=== PATIENT | female | born 1960 | race Caucasian/White ===

== ENCOUNTER 2017-04-27 18:40 | Inpatient (IN) | payer MEDICAID ==
[~2017-04-27] VITALS: Ht 167.6 cm; Wt 65.5 kg
[~2017-04-27 18:40] MED LIST: OMEP20 PO; PALI234D IM; TRAZ-144 PO
[2017-04-27 20:42] VITALS: BP 150/95
[2017-04-27] MEDS ORDERED: HALOPERIDOL 5 MG TABLET PO PRN (20:45)
[2017-04-27] MEDS ORDERED: LORazepam 2 MG TABLET PO PRN (20:45)
[2017-04-27] MEDS ORDERED: PNEUMOCOCCAL VACCINE POLYVALENT 0.5 ML VIAL [PPSV23] IM ONE (21:30)
[2017-04-27 22:10] VITALS: BP 135/90
[2017-04-27] MEDS: ZOLPIDEM TARTRATE 10 MG TABLET PO PRN (22:18)
[2017-04-28 07:17] VITALS: BP 149/90
[2017-04-28 08:12] LABS: BASOPHILS % (AUTO) 0.4 % (0.0-2.0); EOSINOPHILS % (AUTO) 5.2 % (1.0-6.0); HEMATOCRIT 36.1 % (36-46); HEMOGLOBIN 12.5 g/dL (12.0-16.0); LYMPHOCYTES # (AUTO) 1.1 K/uL (1.0-4.8); LYMPHOCYTES % (AUTO) 16.1 % (22.0-44.0); MEAN CORPUSCULAR HEMOGLOBIN 31.7 pg (26.0-34.0); MEAN CORPUSCULAR HGB CONC 34.6 G/dL (31.0-37.0); MEAN CORPUSCULAR VOLUME 92 fL (80-100); MONOCYTES # (AUTO) 0.7 K/uL (0.1-1.0); MONOCYTES % (AUTO) 9.6 % (2.0-9.0); NEUTROPHILS # (AUTO) 4.8 K/uL (1.8-7.7); NEUTROPHILS % (AUTO) 68.7 % (40.0-70.0); PLATELET COUNT (AUTO) 324 K/uL (150-450); RED BLOOD CELL COUNT(AUTO) 3.94 MIL/uL (4.00-5.20); RED CELL DISTRIBUTION WIDTH 14.5 % (11.5-14.5); WHITE BLOOD COUNT (AUTO) 7.1 K/uL (4.5-11.0)
[2017-04-28 08:34] VITALS: BP 139/96
[2017-04-28 08:34] LABS: ALANINE AMINOTRANSFERASE 21 U/L (12-78); ALBUMIN 3.5 g/dL (3.4-5.0); ANION GAP 7 mmol/L (8-16); ASPARTATE AMINOTRANSFERASE 13 U/L (15-37); BILIRUBIN,TOTAL 0.2 mg/dL (0.1-1.0); CALCIUM, TOTAL 8.7 mg/dL (8.8-10.5); CARBON DIOXIDE 27 mmol/L (22-29); CHLORIDE 105 mmol/L (98-107); CREATININE 0.74 mg/dL (0.60-1.30); GLOMERULAR FILTR. RATE CALC > 60 mL/min (>60); POTASSIUM 4.4 mmol/L (3.5-5.1); SODIUM SERUM 139 mmol/L (136-145); THYROID STIMULATING HORMONE 1.84 uIU/mL (0.36-3.74); TOTAL PROTEIN, SERUM 6.3 g/dL (6.4-8.2); UREA NITROGEN, BLOOD 20 mg/dL (7-18)
[2017-04-28 08:52] LABS: APPEARANCE,URINE CLEAR (CLEAR); GLUCOSE, URINE (UA) NEGATIVE (NEGATIVE); KETONES,URINE NEGATIVE (NEGATIVE); LEUKOCYTE ESTERASE ,URINE TRACE (NEGATIVE); OCCULT BLOOD,URINE NEGATIVE (NEGATIVE); PROTEIN,URINE NEGATIVE (NEGATIVE)
[2017-04-28 08:53] LABS: ADD UA MICROSCOPIC YES
[2017-04-28 09:03] LABS: RBC,URINE 0-2 /HPF (0-2); SQUAMOUS EPITHELIAL CELL,UR Rare /LPF (None Seen); WBC,URINE 0-2 /HPF (0-5)
[2017-04-28] MEDS ORDERED: ACETAMINOPHEN 325 MG TABLET PO PRN (09:15)
[2017-04-28] MEDS ORDERED: IBUPROFEN 600 MG TABLET PO PRN (09:15)
[2017-04-28] MEDS: OMEPRAZOLE 20 MG CAPSULE PO SCH (10:39)
[2017-04-28] MEDS: NICOTINE 21 MG/24 HOUR PATCH TD SCH (10:40)
[2017-04-28] MEDS: CloZAPine 100 MG TABLET PO SCH ×2 (16:12→20:08)
[2017-04-28] MEDS: QUEtiapine FUMARATE 300 MG TABLET PO SCH ×2 (16:12→20:08)
[2017-04-28 16:14] VITALS: BP 133/68
[2017-04-28] MEDS ORDERED: CloZAPine 100 MG TABLET PO SCH ×2 (17:00→21:00)
[2017-04-28] MEDS ORDERED: QUEtiapine FUMARATE 300 MG TABLET PO SCH ×2 (17:00→21:00)
[2017-04-28] MEDS: ZOLPIDEM TARTRATE 10 MG TABLET PO PRN (20:08)
[2017-04-29 02:56] VITALS: BP 127/63
[2017-04-29 08:18] VITALS: BP 142/99
[2017-04-29] MEDS: OMEPRAZOLE 20 MG CAPSULE PO SCH (08:23)
[2017-04-29] MEDS: AmLODIPine BESYLATE 5 MG TABLET PO SCH (08:23)
[2017-04-29] MEDS: NICOTINE 21 MG/24 HOUR PATCH TD SCH (08:23)
[2017-04-29] MEDS: QUEtiapine FUMARATE 300 MG TABLET PO SCH ×2 (16:02→20:14)
[2017-04-29 16:03] VITALS: BP 125/73
[2017-04-29] MEDS: CloZAPine 100 MG TABLET PO SCH ×2 (16:03→20:14)
[2017-04-29] MEDS: ZOLPIDEM TARTRATE 10 MG TABLET PO PRN (20:19)
[2017-04-30 07:05] VITALS: BP 131/78
[2017-04-30] MEDS: OMEPRAZOLE 20 MG CAPSULE PO SCH (08:03)
[2017-04-30] MEDS: AmLODIPine BESYLATE 5 MG TABLET PO SCH (08:03)
[2017-04-30] MEDS: NICOTINE 21 MG/24 HOUR PATCH TD SCH (08:03)
[2017-04-30 08:22] VITALS: BP 115/75
[2017-04-30 16:00] VITALS: BP 129/81
[2017-04-30] MEDS: CloZAPine 100 MG TABLET PO SCH ×2 (16:05→20:04)
[2017-04-30] MEDS: QUEtiapine FUMARATE 300 MG TABLET PO SCH ×2 (16:05→20:03)
[2017-04-30] MEDS: ZOLPIDEM TARTRATE 10 MG TABLET PO PRN (20:04)
[2017-05-01] MEDS: AmLODIPine BESYLATE 5 MG TABLET PO SCH (08:50)
[2017-05-01] MEDS: OMEPRAZOLE 20 MG CAPSULE PO SCH (08:50)
[2017-05-01] MEDS: NICOTINE 21 MG/24 HOUR PATCH TD SCH (08:50)
[2017-05-01 16:08] VITALS: BP 119/77
[2017-05-01] MEDS: CloZAPine 100 MG TABLET PO SCH ×2 (16:17→20:29)
[2017-05-01] MEDS: QUEtiapine FUMARATE 300 MG TABLET PO SCH ×2 (16:17→20:29)
[2017-05-01] MEDS: DOCUSATE SODIUM 250 MG CAPSULE PO SCH (17:18)
[2017-05-02 06:44] VITALS: BP 122/86
[2017-05-02] MEDS ORDERED: AMLO-511 PO (08:25)
[2017-05-02] MEDS ORDERED: DOCU250C91 PO (08:25)
[2017-05-02] MEDS: NICOTINE 21 MG/24 HOUR PATCH TD SCH (08:32)
[2017-05-02] MEDS: DOCUSATE SODIUM 250 MG CAPSULE PO SCH (08:32)
[2017-05-02] MEDS: OMEPRAZOLE 20 MG CAPSULE PO SCH (08:32)
[2017-05-02] MEDS: AmLODIPine BESYLATE 5 MG TABLET PO SCH (08:32)
[2017-05-02] MEDS ORDERED: QUET300T2 PO ×2 (08:34→08:36)
[2017-05-02] MEDS ORDERED: CLOZ100 PO ×2 (08:35→08:37)
[2017-05-02 09:00] VITALS: BP 122/86
[2017-05-21] MEDS ORDERED: PALIPERIDONE PALMITATE 234 MG/1.5 ML SYRINGE IM SCH ×2 (09:00)
== END 2017-05-02 13:10 | disposition home or self-care (01) | DRG 750 ==
LOC: EDSTATUS 20:17 → B3A 20:40
DX: F20.0 Paranoid schizophrenia (principal); I10 Essential (primary) hypertension; K21.9 Gastro-esophageal reflux disease without esophagitis; Z82.5 Family history of asthma and other chronic lower respiratory diseases; Z83.3 Family history of diabetes mellitus; Z91.5 Personal history of self-harm
CPT/HCPCS: 80307; 84436; 84439; 84443; 87081

== ENCOUNTER 2017-06-12 09:26 | Emergency (ER) | payer MEDICAID ==
[~2017-06-12] VITALS: Ht 167.6 cm; Wt 65.9 kg
[~2017-06-12 09:26] MED LIST changes: +AMLO-511 PO; +CLOZ100 PO; +DOCU250C91 PO; -PALI234D IM; +QUET300T2 PO; -TRAZ-144 PO
[2017-06-12 09:38] VITALS: BP 99/72
== END 2017-06-12 10:53 | disposition home or self-care (01) ==
LOC: EMS 09:27
DX: M72.2 Plantar fascial fibromatosis (principal); K21.9 Gastro-esophageal reflux disease without esophagitis; F17.210 Nicotine dependence, cigarettes, uncomplicated
CPT/HCPCS: 99282

== ENCOUNTER 2017-11-18 12:43 | Emergency (ER) | payer MEDICAID | END 2017-11-18 13:00 | disposition left against medical advice (07) | LOC: EMS 12:46 | DX: Z53.21 Procedure and treatment not carried out due to patient leaving prior to being seen by health care provider (principal) ==

== ENCOUNTER 2019-03-28 22:00 | Inpatient (IN) | payer MEDICAID ==
[~2019-03-28] VITALS: Ht 168.9 cm; Wt 65.2 kg
[~2019-03-28 22:00] MED LIST changes: -AMLO-511 PO; +AMLO5TAB9 PO; +DOCU-342 PO; -DOCU250C91 PO
[2019-03-28] MEDS ORDERED: HALOPERIDOL 5 MG TABLET PO PRN (22:30)
[2019-03-28] MEDS ORDERED: LORazepam 2 MG TABLET PO PRN (22:30)
[2019-03-28] MEDS ORDERED: ZOLPIDEM TARTRATE 10 MG TABLET PO PRN (22:30)
[2019-03-28 22:47] VITALS: BP 130/94
[2019-03-28] MEDS ORDERED: INFLUENZA VIRUS VACCINE QVS 2019-20 (3YR+)/PF 60 MCG/0.5 ML SYRINGE IM ONE (23:15)
[2019-03-29 00:12] VITALS: BP 125/69
[2019-03-29] MEDS ORDERED: ACETAMINOPHEN 650 MG/20.3 ML SOLUTION UDCUP PO PRN (07:30)
[2019-03-29] MEDS ORDERED: IBUPROFEN 600 MG TABLET PO PRN (07:30)
[2019-03-29 08:06] LABS: BASOPHILS % (AUTO) 1.1 % (0.0-2.0); LYMPHOCYTES # (AUTO) 1.1 K/uL (1.0-4.8); LYMPHOCYTES % (AUTO) 20.8 % (22.0-44.0); MEAN CORPUSCULAR HEMOGLOBIN 31.5 pg (26.0-34.0); MEAN CORPUSCULAR HGB CONC 34.3 G/dL (31.0-37.0); MEAN CORPUSCULAR VOLUME 92 fL (80-100); MONOCYTES # (AUTO) 0.6 K/uL (0.1-1.0); MONOCYTES % (AUTO) 12.4 % (2.0-9.0); NEUTROPHILS # (AUTO) 3.1 K/uL (1.8-7.7); NEUTROPHILS % (AUTO) 61.7 % (40.0-70.0); PLATELET COUNT (AUTO) 392 K/uL (150-450); RED BLOOD CELL COUNT(AUTO) 4.14 MIL/uL (4.00-5.20); RED CELL DISTRIBUTION WIDTH 13.3 % (11.5-14.5)
[2019-03-29 08:12] VITALS: BP 111/73
[2019-03-29] MEDS ORDERED: ACETAMINOPHEN 325 MG TABLET PO PRN (08:15)
[2019-03-29 08:25] LABS: HEMOGLOBIN A1C 5.7 % (4.5-6.2)
[2019-03-29 08:34] LABS: ALANINE AMINOTRANSFERASE 28 U/L (12-78); ALBUMIN 4.2 g/dL (3.4-5.0); ALKALINE PHOSPHATASE 147 U/L (46-116); ANION GAP 7 mmol/L (8-16); ASPARTATE AMINOTRANSFERASE 20 U/L (15-37); BILIRUBIN,TOTAL 0.3 mg/dL (0.1-1.0); CALCIUM, TOTAL 9.5 mg/dL (8.8-10.5); CARBON DIOXIDE 28 mmol/L (22-29); CHLORIDE 107 mmol/L (98-107); CHOL/HDL RATIO 3.3 (3.9-5.7); CHOLESTEROL 171 mg/dL (131-200); FREE T4 (FREE THYROXINE) 0.81 ng/dL (0.76-1.46); GLOMERULAR FILTR. RATE CALC > 60 mL/min (>60); GLUCOSE,RANDOM 97 mg/dL (70-110); HDL CHOLESTEROL 52 mg/dL (40-60); LDL CHOL (CALC.) 98 mg/dL (0-130); POTASSIUM 4.5 mmol/L (3.5-5.1); SODIUM SERUM 142 mmol/L (136-145); THYROID STIMULATING HORMONE 2.94 uIU/mL (0.36-3.74); TOTAL PROTEIN, SERUM 7.2 g/dL (6.4-8.2); TRIGLYCERIDES 103 mg/dL (15-150); UREA NITROGEN, BLOOD 13 mg/dL (7-18)
[2019-03-29] MEDS: NICOTINE 14 MG/24 HOUR PATCH TD SCH (09:16)
[2019-03-29 16:09] VITALS: BP 111/79
[2019-03-29] MEDS: QUEtiapine FUMARATE 300 MG TABLET PO SCH (20:24)
[2019-03-29] MEDS: CloZAPine 100 MG TABLET PO SCH (21:00)
[2019-03-30 01:16] VITALS: BP 104/62
[2019-03-30 08:12] VITALS: BP 113/77
[2019-03-30] MEDS: NICOTINE 14 MG/24 HOUR PATCH TD SCH (08:23)
[2019-03-30] MEDS: OMEPRAZOLE 20 MG CAPSULE PO SCH (08:23)
[2019-03-30] MEDS: DOCUSATE SODIUM 250 MG CAPSULE PO SCH (08:23)
[2019-03-30 16:14] VITALS: BP 128/78
[2019-03-30] MEDS: CloZAPine 100 MG TABLET PO SCH (20:40)
[2019-03-30] MEDS: QUEtiapine FUMARATE 300 MG TABLET PO SCH (20:40)
[2019-03-31 05:54] VITALS: BP 134/79
[2019-03-31] MEDS: NICOTINE 14 MG/24 HOUR PATCH TD SCH (08:18)
[2019-03-31] MEDS: OMEPRAZOLE 20 MG CAPSULE PO SCH (08:18)
[2019-03-31] MEDS: DOCUSATE SODIUM 250 MG CAPSULE PO SCH (08:18)
[2019-03-31 08:51] VITALS: BP 122/93
[2019-03-31] MEDS ORDERED: CLOZ100 PO (11:32)
== END 2019-03-31 13:10 | disposition home or self-care (01) | DRG 750 ==
LOC: B2S 22:25
PROVIDERS: ADMIT Psychiatry & Neurology Psychiatry; ATTEND Psychiatry & Neurology Psychiatry
DX: F20.0 Paranoid schizophrenia (principal); R45.851 Suicidal ideations; Z59.0 Homelessness; I10 Essential (primary) hypertension; J45.909 Unspecified asthma, uncomplicated; K21.9 Gastro-esophageal reflux disease without esophagitis; K59.00 Constipation, unspecified; F12.90 Cannabis use, unspecified, uncomplicated; M17.11 Unilateral primary osteoarthritis, right knee; Z82.5 Family history of asthma and other chronic lower respiratory diseases
CPT/HCPCS: 83036; 84439; 84443; 90686

== ENCOUNTER 2019-05-27 18:06 | Emergency (ER) | payer MEDICAID ==
[~2019-05-27] VITALS: Ht 167.6 cm; Wt 72.7 kg
[~2019-05-27 18:06] MED LIST changes: -AMLO5TAB9 PO
[2019-05-27 18:14] VITALS: BP 119/90
[2019-05-27 19:46] LABS: BASOPHILS % (AUTO) 0.7 % (0.0-2.0); EOSINOPHILS % (AUTO) 1.5 % (1.0-6.0); HEMATOCRIT 35.3 % (36-46); HEMOGLOBIN 12.2 g/dL (12.0-16.0); LYMPHOCYTES % (AUTO) 15.3 % (22.0-44.0); MEAN CORPUSCULAR HEMOGLOBIN 31.5 pg (26.0-34.0); MEAN CORPUSCULAR HGB CONC 34.4 G/dL (31.0-37.0); MEAN CORPUSCULAR VOLUME 91 fL (80-100); MONOCYTES # (AUTO) 0.8 K/uL (0.1-1.0); MONOCYTES % (AUTO) 12.1 % (2.0-9.0); NEUTROPHILS # (AUTO) 4.4 K/uL (1.8-7.7); NEUTROPHILS % (AUTO) 70.4 % (40.0-70.0); PLATELET COUNT (AUTO) 379 K/uL (150-450); RED BLOOD CELL COUNT(AUTO) 3.87 MIL/uL (4.00-5.20); RED CELL DISTRIBUTION WIDTH 13.3 % (11.5-14.5)
[2019-05-27 19:54] LABS: CALCIUM, TOTAL 9.4 mg/dL (8.8-10.5); CREATININE 1.2 mg/dL (0.60-1.30); POTASSIUM 3.5 mmol/L (3.5-5.1)
[2019-05-27 20:02] LABS: ALBUMIN 4.5 g/dL (3.4-5.0); BILIRUBIN,TOTAL 0.3 mg/dL (0.1-1.0); TOTAL PROTEIN, SERUM 7.8 g/dL (6.4-8.2)
== END 2019-05-27 20:00 | disposition home or self-care (01) ==
LOC: EMS 18:08
DX: B34.9 Viral infection, unspecified (principal); R11.2 Nausea with vomiting, unspecified; G47.00 Insomnia, unspecified; K21.9 Gastro-esophageal reflux disease without esophagitis; F41.9 Anxiety disorder, unspecified; F32.9 Major depressive disorder, single episode, unspecified; F20.9 Schizophrenia, unspecified; F17.210 Nicotine dependence, cigarettes, uncomplicated; Z79.899 Other long term (current) drug therapy; Z98.890 Other specified postprocedural states

== ENCOUNTER 2019-07-20 13:00 | Inpatient (IN) | payer MEDICAID ==
[~2019-07-20] VITALS: Ht 167.6 cm; Wt 61.2 kg
[2019-07-24 10:21] VITALS: BP 137/85
[2019-07-24] MEDS ORDERED: QUEtiapine FUMARATE 100 MG TABLET PO PRN (11:00)
[2019-07-24] MEDS ORDERED: ZOLPIDEM TARTRATE 10 MG TABLET PO PRN (11:00)
[2019-07-24] MEDS ORDERED: CLOZ100 PO (12:42)
[2019-07-24] MEDS ORDERED: SENN-237 PO (12:42)
[2019-07-24] MEDS ORDERED: CHOL200012 PO (12:42)
[2019-07-24] MEDS ORDERED: QUET300T2 PO (12:45)
[2019-07-24] MEDS ORDERED: TRAZ-184 PO (12:45)
[2019-07-24] MEDS ORDERED: -PHARMACY VACCINE NOTE- MISC ONE (13:15)
[2019-07-24] MEDS ORDERED: PNEUMOCOCCAL VACCINE POLYVALENT 0.5 ML VIAL [PPSV23] IM ONE (13:15)
[2019-07-24 14:13] VITALS: BP 110/65
[2019-07-24 16:05] VITALS: BP 114/65
[2019-07-24] MEDS: LORazepam 1 MG TABLET PO PRN (17:05)
[2019-07-24] MEDS ORDERED: ChlorproMAZINE HCL 50 MG TABLET PO PRN (23:00)
[2019-07-25 00:39] VITALS: BP 113/70
[2019-07-25 08:06] LABS: BASOPHILS % (AUTO) 0.6 % (0.0-2.0); EOSINOPHILS % (AUTO) 4.8 % (1.0-6.0); HEMATOCRIT 35.6 % (36-46); HEMOGLOBIN 12.2 g/dL (12.0-16.0); LYMPHOCYTES # (AUTO) 0.9 K/uL (1.0-4.8); LYMPHOCYTES % (AUTO) 13.1 % (22.0-44.0); MEAN CORPUSCULAR HGB CONC 34.4 G/dL (31.0-37.0); MEAN CORPUSCULAR VOLUME 90 fL (80-100); MONOCYTES # (AUTO) 0.6 K/uL (0.1-1.0); MONOCYTES % (AUTO) 8.6 % (2.0-9.0); NEUTROPHILS # (AUTO) 5.1 K/uL (1.8-7.7); NEUTROPHILS % (AUTO) 72.9 % (40.0-70.0); PLATELET COUNT (AUTO) 466 K/uL (150-450); RED BLOOD CELL COUNT(AUTO) 3.94 MIL/uL (4.00-5.20); RED CELL DISTRIBUTION WIDTH 13.4 % (11.5-14.5)
[2019-07-25 08:19] VITALS: BP 114/72
[2019-07-25 08:33] LABS: ALANINE AMINOTRANSFERASE 41 U/L (12-78); ALBUMIN 3.4 g/dL (3.4-5.0); ALKALINE PHOSPHATASE 99 U/L (46-116); ANION GAP 5 mmol/L (8-16); ASPARTATE AMINOTRANSFERASE 32 U/L (15-37); BILIRUBIN,TOTAL 0.3 mg/dL (0.1-1.0); CALCIUM, TOTAL 9.4 mg/dL (8.8-10.5); CARBON DIOXIDE 29 mmol/L (22-29); CHLORIDE 106 mmol/L (98-107); CHOL/HDL RATIO 2.2 (3.9-5.7); CHOLESTEROL 148 mg/dL (131-200); CREATININE 0.75 mg/dL (0.60-1.30); FREE T4 (FREE THYROXINE) 0.91 ng/dL (0.76-1.46); GLOMERULAR FILTR. RATE CALC > 60 mL/min (>60); GLUCOSE,RANDOM 83 mg/dL (70-110); HDL CHOLESTEROL 66 mg/dL (40-60); LDL CHOL (CALC.) 67 mg/dL (0-130); POTASSIUM 3.2 mmol/L (3.5-5.1); SODIUM SERUM 140 mmol/L (136-145); THYROID STIMULATING HORMONE 2.08 uIU/mL (0.36-3.74); TOTAL PROTEIN, SERUM 6.7 g/dL (6.4-8.2); TRIGLYCERIDES 74 mg/dL (15-150); UREA NITROGEN, BLOOD 12 mg/dL (7-18)
[2019-07-25] MEDS ORDERED: NICOTINE 14 MG/24 HOUR PATCH TD PRN (09:00)
[2019-07-25] MEDS ORDERED: GuaiFENesin/D-METHORPHAN [SUGAR-FREE] 200-20MG/10 ML SYRUP UDCUP PO PRN (09:00)
[2019-07-25] MEDS ORDERED: ALBUTEROL SULFATE HFA 90 MCG/PUFF 8 GM INHALER IH PRN (09:00)
[2019-07-25] MEDS ORDERED: CloNIDine HCL 0.1 MG TABLET PO PRN (09:00)
[2019-07-25] MEDS ORDERED: ONDANSETRON HCL 4 MG TABLET PO PRN (09:00)
[2019-07-25] MEDS ORDERED: DOCUSATE SODIUM 100 MG CAPSULE PO PRN (09:00)
[2019-07-25] MEDS ORDERED: ACETAMINOPHEN 325 MG TABLET PO PRN (09:00)
[2019-07-25] MEDS ORDERED: PETROLATUM,WHITE 28 GM JELLY TP PRN (09:00)
[2019-07-25] MEDS ORDERED: LOPERAMIDE HCL 2 MG CAPSULE PO PRN (09:00)
[2019-07-25] MEDS ORDERED: IBUPROFEN 400 MG TABLET PO PRN (09:00)
[2019-07-25] MEDS ORDERED: MAG HYDROX/AL HYDROX/SIMETH ES 30 ML SUSPENSION UDCUP PO PRN (09:00)
[2019-07-25] MEDS ORDERED: OLANZapine 5 MG RAPDIS TABLET PO SCH (09:00)
[2019-07-25] MEDS ORDERED: MAGNESIUM HYDROXIDE SUSPENSION 30 ML UDCUP PO PRN (09:00)
[2019-07-25] MEDS: SENNA/DOCUSATE SODIUM 8.6-50 MG TABLET PO SCH (11:40)
[2019-07-25] MEDS: LORazepam 1 MG TABLET PO PRN (14:22)
[2019-07-25] MEDS ORDERED: PALIPERIDONE PALMITATE 234 MG/1.5 ML SYRINGE IM ONE (15:30)
[2019-07-25 16:41] VITALS: BP 112/77
[2019-07-25] MEDS ORDERED: DIVALPROEX SODIUM 500 MG ER TABLET PO SCH (17:00)
[2019-07-25] MEDS: DIVALPROEX SODIUM 500 MG ER TABLET PO SCH (17:39)
[2019-07-25] MEDS ORDERED: POTASSIUM CHLORIDE 20 MEQ ER TABLET PO ONE (19:30)
[2019-07-25] MEDS ORDERED: TraZODone HCL 50 MG TABLET PO SCH (21:00)
[2019-07-25] MEDS: CHOLECALCIFEROL (VIT D3) 2,000 UNITS TABLET PO SCH (21:30)
[2019-07-26] MEDS: ZOLPIDEM TARTRATE 5 MG TABLET PO PRN ×2 (00:02→21:19)
[2019-07-26 00:16] VITALS: BP 102/62
[2019-07-26] MEDS: SENNA/DOCUSATE SODIUM 8.6-50 MG TABLET PO SCH (08:49)
[2019-07-26] MEDS: CHOLECALCIFEROL (VIT D3) 2,000 UNITS TABLET PO SCH (08:50)
[2019-07-26 09:02] VITALS: BP 105/66
[2019-07-26 09:32] LABS: POTASSIUM 3.7 mmol/L (3.5-5.1); THYROID STIMULATING HORMONE 3.16 uIU/mL (0.36-3.74)
[2019-07-26] MEDS ORDERED: PETROLATUM,WHITE 28 GM JELLY TP PRN (15:30)
[2019-07-26] MEDS: DIVALPROEX SODIUM 500 MG ER TABLET PO SCH (16:04)
[2019-07-27 00:18] VITALS: BP 117/80
[2019-07-27 07:57] LABS: BASOPHILS % (AUTO) 0.8 % (0.0-2.0); EOSINOPHILS % (AUTO) 6.1 % (1.0-6.0); HEMATOCRIT 34.7 % (36-46); HEMOGLOBIN 11.9 g/dL (12.0-16.0); LYMPHOCYTES # (AUTO) 1.2 K/uL (1.0-4.8); LYMPHOCYTES % (AUTO) 25.8 % (22.0-44.0); MEAN CORPUSCULAR HEMOGLOBIN 31.1 pg (26.0-34.0); MEAN CORPUSCULAR HGB CONC 34.3 G/dL (31.0-37.0); MEAN CORPUSCULAR VOLUME 91 fL (80-100); MONOCYTES # (AUTO) 0.4 K/uL (0.1-1.0); MONOCYTES % (AUTO) 9.5 % (2.0-9.0); NEUTROPHILS # (AUTO) 2.6 K/uL (1.8-7.7); NEUTROPHILS % (AUTO) 57.8 % (40.0-70.0); PLATELET COUNT (AUTO) 438 K/uL (150-450); RED BLOOD CELL COUNT(AUTO) 3.83 MIL/uL (4.00-5.20); RED CELL DISTRIBUTION WIDTH 13.7 % (11.5-14.5)
[2019-07-27 08:28] VITALS: BP 109/69
[2019-07-27] MEDS: CHOLECALCIFEROL (VIT D3) 2,000 UNITS TABLET PO SCH (09:00)
[2019-07-27] MEDS ORDERED: CloZAPine 25 MG TABLET PO SCH (09:00)
[2019-07-27] MEDS: SENNA/DOCUSATE SODIUM 8.6-50 MG TABLET PO SCH (09:00)
[2019-07-27 16:00] VITALS: BP 114/71
[2019-07-27] MEDS: DIVALPROEX SODIUM 500 MG ER TABLET PO SCH (16:12)
[2019-07-27] MEDS: PALIPERIDONE 3 MG ER TABLET PO PRN ×2 (17:37→18:05)
[2019-07-28] MEDS: CHOLECALCIFEROL (VIT D3) 2,000 UNITS TABLET PO SCH (08:09)
[2019-07-28] MEDS: SENNA/DOCUSATE SODIUM 8.6-50 MG TABLET PO SCH (08:10)
[2019-07-28 08:34] VITALS: BP 114/66
[2019-07-28] MEDS ORDERED: CloZAPine 25 MG TABLET PO SCH ×2 (09:00→21:00)
[2019-07-28 16:25] VITALS: BP 100/58
[2019-07-28] MEDS: DIVALPROEX SODIUM 500 MG ER TABLET PO SCH (16:33)
[2019-07-29 00:41] VITALS: BP 110/70
[2019-07-29] MEDS: SENNA/DOCUSATE SODIUM 8.6-50 MG TABLET PO SCH (08:37)
[2019-07-29] MEDS: CHOLECALCIFEROL (VIT D3) 2,000 UNITS TABLET PO SCH (08:37)
[2019-07-29 08:46] VITALS: BP 130/81
[2019-07-29] MEDS ORDERED: CloZAPine 25 MG TABLET PO SCH ×2 (09:00→21:00)
[2019-07-29] MEDS ORDERED: PALIPERIDONE PALMITATE 156 MG/ML SYRINGE IM ONE ×2 (09:00)
[2019-07-29 16:44] VITALS: BP 118/65
[2019-07-29] MEDS: DIVALPROEX SODIUM 500 MG ER TABLET PO SCH (16:49)
[2019-07-30 01:33] VITALS: BP 125/73
[2019-07-30] MEDS: SENNA/DOCUSATE SODIUM 8.6-50 MG TABLET PO SCH (08:40)
[2019-07-30] MEDS: CHOLECALCIFEROL (VIT D3) 2,000 UNITS TABLET PO SCH (08:40)
[2019-07-30] MEDS ORDERED: CloZAPine 25 MG TABLET PO SCH (09:00)
[2019-07-30 09:59] VITALS: BP 109/64
[2019-07-30] MEDS: DIVALPROEX SODIUM 500 MG ER TABLET PO SCH (16:32)
[2019-07-31 06:05] VITALS: BP 112/83
[2019-07-31 08:26] VITALS: BP 118/85
[2019-07-31] MEDS: SENNA/DOCUSATE SODIUM 8.6-50 MG TABLET PO SCH (08:28)
[2019-07-31] MEDS: CHOLECALCIFEROL (VIT D3) 2,000 UNITS TABLET PO SCH (08:29)
[2019-07-31] MEDS ORDERED: DIVA500T52 PO (15:37)
[2019-07-31] MEDS ORDERED: PALI117D IM (15:38)
[2019-07-31 16:18] VITALS: BP 112/77
[2019-07-31] MEDS: DIVALPROEX SODIUM 500 MG ER TABLET PO SCH (16:40)
[2019-08-01] MEDS ORDERED: CloZAPine 25 MG TABLET PO SCH (09:00)
[2019-08-01] MEDS ORDERED: CloZAPine 100 MG TABLET PO SCH (21:00)
[2019-08-02] MEDS ORDERED: CloZAPine 25 MG TABLET PO SCH (09:00)
[2019-08-02] MEDS ORDERED: CloZAPine 100 MG TABLET PO SCH (21:00)
[2019-08-03] MEDS ORDERED: CloZAPine 25 MG TABLET PO SCH (09:00)
[2019-08-03] MEDS ORDERED: CloZAPine 100 MG TABLET PO SCH (21:00)
[2019-08-04] MEDS ORDERED: CloZAPine 100 MG TABLET PO SCH (09:00)
[2019-08-06] MEDS ORDERED: CloZAPine 25 MG TABLET PO SCH (09:00)
[2019-08-06] MEDS ORDERED: CloZAPine 100 MG TABLET PO SCH (21:00)
[2019-08-07] MEDS ORDERED: CloZAPine 25 MG TABLET PO SCH (09:00)
[2019-08-07] MEDS ORDERED: CloZAPine 100 MG TABLET PO SCH (21:00)
[2019-08-08] MEDS ORDERED: CloZAPine 100 MG TABLET PO SCH ×2 (09:00→21:00)
[2019-08-24] MEDS ORDERED: PALIPERIDONE PALMITATE 117 MG/0.75 ML SYRINGE IM SCH (09:00)
== END 2019-07-31 19:10 | disposition home or self-care (01) | DRG 750 ==
LOC: B2S 07-24 11:19
PROVIDERS: ADMIT Psychiatry & Neurology Psychiatry; ATTEND Psychiatry & Neurology Psychiatry
DX: F20.0 Paranoid schizophrenia (principal); Z59.0 Homelessness; E55.9 Vitamin D deficiency, unspecified; E87.6 Hypokalemia; F31.9 Bipolar disorder, unspecified; I10 Essential (primary) hypertension; J44.9 Chronic obstructive pulmonary disease, unspecified; K21.9 Gastro-esophageal reflux disease without esophagitis; K59.00 Constipation, unspecified; G89.29 Other chronic pain; M54.9 Dorsalgia, unspecified; F41.9 Anxiety disorder, unspecified; Z91.14 Patient's other noncompliance with medication regimen; Z56.0 Unemployment, unspecified
CPT/HCPCS: 80159; 84132; 84439; 84443; 90732

== ENCOUNTER 2019-09-23 12:43 | Inpatient (IN) | payer MEDICAID ==
[~2019-09-23] VITALS: Ht 167.6 cm; Wt 64.5 kg
[~2019-09-23 12:43] MED LIST changes: +CHOL200012 PO; -CLOZ100 PO; +DIVA500T52 PO; -DOCU-342 PO; -OMEP20 PO; +PALI117D IM; -QUET300T2 PO; +SENN-237 PO
[2019-09-23 18:43] VITALS: BP 133/92
[2019-09-23] MEDS ORDERED: HALOPERIDOL 5 MG TABLET PO PRN (18:45)
[2019-09-23] MEDS ORDERED: ZOLPIDEM TARTRATE 10 MG TABLET PO PRN (18:45)
[2019-09-23] MEDS ORDERED: LORazepam 1 MG TABLET PO PRN (18:45)
[2019-09-23 20:20] VITALS: BP 105/69
[2019-09-23] MEDS ORDERED: NAPR-1025 PO (20:40)
[2019-09-23] MEDS ORDERED: AMLO5TAB9 PO (20:40)
[2019-09-23] MEDS ORDERED: QUET200T PO (20:40)
[2019-09-23] MEDS ORDERED: GEMF600T5 PO (20:40)
[2019-09-23] MEDS ORDERED: DEUT6TAB PO (20:40)
[2019-09-23] MEDS ORDERED: DOCU-275 PO (20:40)
[2019-09-23] MEDS ORDERED: PNEUMOCOCCAL VACCINE POLYVALENT 0.5 ML VIAL [PPSV23] IM ONE (20:45)
[2019-09-24 02:38] VITALS: BP 113/75
[2019-09-24 07:03] LABS: BASOPHILS % (AUTO) 0.9 % (0.0-2.0); EOSINOPHILS % (AUTO) 9.1 % (1.0-6.0); HEMATOCRIT 39.7 % (36-46); HEMOGLOBIN 13.4 g/dL (12.0-16.0); LYMPHOCYTES # (AUTO) 1.6 K/uL (1.0-4.8); LYMPHOCYTES % (AUTO) 31.2 % (22.0-44.0); MEAN CORPUSCULAR HEMOGLOBIN 30.7 pg (26.0-34.0); MEAN CORPUSCULAR HGB CONC 33.6 G/dL (31.0-37.0); MEAN CORPUSCULAR VOLUME 91 fL (80-100); MONOCYTES # (AUTO) 0.5 K/uL (0.1-1.0); MONOCYTES % (AUTO) 10.3 % (2.0-9.0); NEUTROPHILS # (AUTO) 2.4 K/uL (1.8-7.7); NEUTROPHILS % (AUTO) 48.5 % (40.0-70.0); PLATELET COUNT (AUTO) 309 K/uL (150-450); RED BLOOD CELL COUNT(AUTO) 4.35 MIL/uL (4.00-5.20); RED CELL DISTRIBUTION WIDTH 14.6 % (11.5-14.5)
[2019-09-24 07:35] LABS: ALANINE AMINOTRANSFERASE 21 U/L (12-78); ALBUMIN 3.7 g/dL (3.4-5.0); ALKALINE PHOSPHATASE 74 U/L (46-116); ANION GAP 7 mmol/L (8-16); ASPARTATE AMINOTRANSFERASE 13 U/L (15-37); BILIRUBIN,TOTAL 0.3 mg/dL (0.1-1.0); CALCIUM, TOTAL 9.1 mg/dL (8.8-10.5); CARBON DIOXIDE 29 mmol/L (22-29); CHLORIDE 107 mmol/L (98-107); CHOL/HDL RATIO 3.1 (3.9-5.7); CHOLESTEROL 169 mg/dL (131-200); CREATININE 0.71 mg/dL (0.60-1.30); FREE T4 (FREE THYROXINE) 0.75 ng/dL (0.76-1.46); GLOMERULAR FILTR. RATE CALC > 60 mL/min (>60); GLUCOSE,RANDOM 83 mg/dL (70-110); HDL CHOLESTEROL 55 mg/dL (40-60); LDL CHOL (CALC.) 103 mg/dL (0-130); POTASSIUM 4.7 mmol/L (3.5-5.1); SODIUM SERUM 143 mmol/L (136-145); THYROID STIMULATING HORMONE 2.47 uIU/mL (0.36-3.74); TOTAL PROTEIN, SERUM 6.3 g/dL (6.4-8.2); TRIGLYCERIDES 53 mg/dL (15-150); UREA NITROGEN, BLOOD 12 mg/dL (7-18); VALPROIC ACID 45 mcg/mL (50-100)
[2019-09-24 08:00] VITALS: BP 120/73
[2019-09-24] MEDS: DOCUSATE SODIUM 100 MG CAPSULE PO SCH (08:54)
[2019-09-24] MEDS: CHOLECALCIFEROL (VIT D3) 2,000 UNITS [50 MCG] TABLET PO SCH (08:54)
[2019-09-24] MEDS ORDERED: ONDANSETRON HCL 4 MG TABLET PO PRN (11:45)
[2019-09-24] MEDS ORDERED: IBUPROFEN 400 MG TABLET PO PRN (11:45)
[2019-09-24] MEDS ORDERED: LOPERAMIDE HCL 2 MG CAPSULE PO PRN (11:45)
[2019-09-24] MEDS ORDERED: GuaiFENesin/D-METHORPHAN [SUGAR-FREE] 200-20MG/10 ML SYRUP UDCUP PO PRN (11:45)
[2019-09-24] MEDS ORDERED: ACETAMINOPHEN 325 MG TABLET PO PRN (11:45)
[2019-09-24] MEDS ORDERED: MAG HYDROX/AL HYDROX/SIMETH ES 30 ML SUSPENSION UDCUP PO PRN (11:45)
[2019-09-24] MEDS ORDERED: PETROLATUM,WHITE 28 GM JELLY TP PRN (11:45)
[2019-09-24] MEDS ORDERED: MAGNESIUM HYDROXIDE SUSPENSION 30 ML UDCUP PO PRN (11:45)
[2019-09-24] MEDS ORDERED: ALBUTEROL SULFATE HFA 90 MCG/PUFF 8 GM INHALER IH PRN (11:45)
[2019-09-24] MEDS ORDERED: CloNIDine HCL 0.1 MG TABLET PO PRN (11:45)
[2019-09-24] MEDS ORDERED: DOCUSATE SODIUM 100 MG CAPSULE PO PRN (11:45)
[2019-09-24] MEDS ORDERED: NICOTINE 14 MG/24 HOUR PATCH TD PRN (11:45)
[2019-09-24 16:09] VITALS: BP 136/68
[2019-09-24] MEDS: GEMFIBROZIL 600 MG TABLET PO SCH (16:12)
[2019-09-25] MEDS: GEMFIBROZIL 600 MG TABLET PO SCH ×2 (06:46→16:30)
[2019-09-25] MEDS: DIVALPROEX SODIUM 500 MG ER TABLET PO SCH (09:05)
[2019-09-25] MEDS: DOCUSATE SODIUM 100 MG CAPSULE PO SCH (09:05)
[2019-09-25] MEDS: AmLODIPine BESYLATE 5 MG TABLET PO SCH (09:05)
[2019-09-25] MEDS: SENNA/DOCUSATE SODIUM 8.6-50 MG TABLET PO SCH (09:05)
[2019-09-25] MEDS: CHOLECALCIFEROL (VIT D3) 2,000 UNITS [50 MCG] TABLET PO SCH (09:06)
[2019-09-25 09:52] VITALS: BP 110/72
[2019-09-25 16:22] VITALS: BP 105/60
[2019-09-25] MEDS: QUEtiapine FUMARATE 200 MG TABLET PO SCH (20:51)
[2019-09-26 01:48] VITALS: BP 108/68
[2019-09-26] MEDS: GEMFIBROZIL 600 MG TABLET PO SCH ×2 (06:35→16:07)
[2019-09-26] MEDS: DOCUSATE SODIUM 100 MG CAPSULE PO SCH (08:52)
[2019-09-26] MEDS: CHOLECALCIFEROL (VIT D3) 2,000 UNITS [50 MCG] TABLET PO SCH (08:53)
[2019-09-26] MEDS: SENNA/DOCUSATE SODIUM 8.6-50 MG TABLET PO SCH (08:53)
[2019-09-26] MEDS: DIVALPROEX SODIUM 500 MG ER TABLET PO SCH (08:53)
[2019-09-26] MEDS: AmLODIPine BESYLATE 5 MG TABLET PO SCH (08:53)
[2019-09-26 08:59] VITALS: BP 107/68
[2019-09-26 16:38] VITALS: BP 126/73
[2019-09-26] MEDS: QUEtiapine FUMARATE 200 MG TABLET PO SCH (20:23)
[2019-09-27 05:42] VITALS: BP 117/69
[2019-09-27] MEDS: GEMFIBROZIL 600 MG TABLET PO SCH ×2 (06:22→16:23)
[2019-09-27 08:18] VITALS: BP 107/63
[2019-09-27] MEDS: SENNA/DOCUSATE SODIUM 8.6-50 MG TABLET PO SCH (08:38)
[2019-09-27] MEDS: CHOLECALCIFEROL (VIT D3) 2,000 UNITS [50 MCG] TABLET PO SCH (08:38)
[2019-09-27] MEDS: DIVALPROEX SODIUM 500 MG ER TABLET PO SCH (08:38)
[2019-09-27] MEDS: DOCUSATE SODIUM 100 MG CAPSULE PO SCH (08:38)
[2019-09-27] MEDS: AmLODIPine BESYLATE 5 MG TABLET PO SCH (08:39)
[2019-09-27 16:05] VITALS: BP_SYST 102; BP_SYST 108; BP_DIAS 55; BP_DIAS 61
[2019-09-27] MEDS: QUEtiapine FUMARATE 200 MG TABLET PO SCH (20:12)
[2019-09-28 01:34] VITALS: BP 127/65
[2019-09-28] MEDS: GEMFIBROZIL 600 MG TABLET PO SCH (07:06)
[2019-09-28 08:45] VITALS: BP 125/60
[2019-09-28] MEDS: DOCUSATE SODIUM 100 MG CAPSULE PO SCH (08:47)
[2019-09-28] MEDS: DIVALPROEX SODIUM 500 MG ER TABLET PO SCH (08:47)
[2019-09-28] MEDS: SENNA/DOCUSATE SODIUM 8.6-50 MG TABLET PO SCH (08:48)
[2019-09-28] MEDS: AmLODIPine BESYLATE 5 MG TABLET PO SCH (08:48)
[2019-09-28] MEDS: CHOLECALCIFEROL (VIT D3) 2,000 UNITS [50 MCG] TABLET PO SCH (08:48)
[2019-09-28] MEDS ORDERED: DOCU-119 PO (12:03)
== END 2019-09-28 13:05 | disposition home or self-care (01) | DRG 750 ==
LOC: B2S 18:49
PROVIDERS: ADMIT Psychiatry & Neurology Psychiatry; ATTEND Psychiatry & Neurology Psychiatry
DX: F20.0 Paranoid schizophrenia (principal); R45.851 Suicidal ideations; E11.9 Type 2 diabetes mellitus without complications; I10 Essential (primary) hypertension; K21.9 Gastro-esophageal reflux disease without esophagitis; G89.29 Other chronic pain; E78.00 Pure hypercholesterolemia, unspecified; K59.00 Constipation, unspecified; F31.9 Bipolar disorder, unspecified; E78.5 Hyperlipidemia, unspecified; E55.9 Vitamin D deficiency, unspecified; F19.10 Other psychoactive substance abuse, uncomplicated; J44.9 Chronic obstructive pulmonary disease, unspecified; F10.10 Alcohol abuse, uncomplicated; Y90.9 Presence of alcohol in blood, level not specified; Z79.899 Other long term (current) drug therapy
CPT/HCPCS: 84439; 84443

== ENCOUNTER 2019-11-15 20:10 | Inpatient (IN) | payer MEDICAID ==
[~2019-11-15] VITALS: Ht 167.6 cm; Wt 61.5 kg
[~2019-11-15 20:10] MED LIST changes: +AMLO5TAB9 PO; -CHOL200012 PO; +DOCU-119 PO; +GEMF600T5 PO; -PALI117D IM; +QUET200T PO
[2019-11-15] MEDS ORDERED: LORazepam 2 MG TABLET PO PRN (21:00)
[2019-11-15] MEDS ORDERED: HALOPERIDOL 5 MG TABLET PO PRN (21:00)
[2019-11-15] MEDS ORDERED: ZOLPIDEM TARTRATE 10 MG TABLET PO PRN (21:00)
[2019-11-15 21:50] VITALS: BP 133/89
[2019-11-15] MEDS ORDERED: PNEUMOCOCCAL VACCINE POLYVALENT 0.5 ML VIAL [PPSV23] IM ONE (22:15)
[2019-11-15 23:30] VITALS: BP 133/81
[2019-11-16 00:59] VITALS: BP 133/81
[2019-11-16 03:32] VITALS: BP 122/82
[2019-11-16] MEDS ORDERED: CloNIDine HCL 0.1 MG TABLET PO PRN (07:15)
[2019-11-16] MEDS ORDERED: LOPERAMIDE HCL 2 MG CAPSULE PO PRN (07:15)
[2019-11-16] MEDS ORDERED: ALBUTEROL SULFATE HFA 90 MCG/PUFF 8 GM INHALER IH PRN (07:15)
[2019-11-16] MEDS ORDERED: BENZOCAINE/MENTHOL LOZENGE MM PRN (07:15)
[2019-11-16] MEDS ORDERED: DOCUSATE SODIUM 100 MG CAPSULE PO PRN (07:15)
[2019-11-16] MEDS ORDERED: MAGNESIUM HYDROXIDE SUSPENSION 30 ML UDCUP PO PRN (07:15)
[2019-11-16] MEDS ORDERED: MAG HYDROX/AL HYDROX/SIMETH ES 30 ML SUSPENSION UDCUP PO PRN (07:15)
[2019-11-16] MEDS ORDERED: BACITRACIN 28.4 GM OINTMENT TP PRN (07:15)
[2019-11-16] MEDS ORDERED: IBUPROFEN 600 MG TABLET PO PRN (07:15)
[2019-11-16] MEDS ORDERED: ACETAMINOPHEN 325 MG TABLET PO PRN (07:15)
[2019-11-16] MEDS ORDERED: PETROLATUM,WHITE 28 GM JELLY TP PRN (07:15)
[2019-11-16] MEDS ORDERED: OMEPRAZOLE 20 MG CAPSULE PO PRN (07:15)
[2019-11-16] MEDS ORDERED: ONDANSETRON HCL 4 MG TABLET PO PRN (07:15)
[2019-11-16 08:03] VITALS: BP 116/68
[2019-11-16 08:22] LABS: BASOPHILS % (AUTO) 0.7 % (0.0-2.0); EOSINOPHILS % (AUTO) 6.1 % (1.0-6.0); HEMATOCRIT 35.4 % (36-46); HEMOGLOBIN 12.4 g/dL (12.0-16.0); LYMPHOCYTES # (AUTO) 1.7 K/uL (1.0-4.8); LYMPHOCYTES % (AUTO) 31.7 % (22.0-44.0); MEAN CORPUSCULAR HEMOGLOBIN 32.7 pg (26.0-34.0); MEAN CORPUSCULAR HGB CONC 35.1 G/dL (31.0-37.0); MEAN CORPUSCULAR VOLUME 93 fL (80-100); MONOCYTES # (AUTO) 0.9 K/uL (0.1-1.0); MONOCYTES % (AUTO) 15.8 % (2.0-9.0); NEUTROPHILS # (AUTO) 2.5 K/uL (1.8-7.7); NEUTROPHILS % (AUTO) 45.7 % (40.0-70.0); PLATELET COUNT (AUTO) 338 K/uL (150-450); RED CELL DISTRIBUTION WIDTH 14.5 % (11.5-14.5)
[2019-11-16 08:34] LABS: HEMOGLOBIN A1C 5.2 % (3.8-5.6)
[2019-11-16 08:55] LABS: ALANINE AMINOTRANSFERASE 18 U/L (12-78); ALBUMIN 3.2 g/dL (3.4-5.0); ALKALINE PHOSPHATASE 65 U/L (46-116); ANION GAP 6 mmol/L (8-16); ASPARTATE AMINOTRANSFERASE 12 U/L (15-37); BILIRUBIN,TOTAL 0.3 mg/dL (0.1-1.0); CALCIUM, TOTAL 8.9 mg/dL (8.8-10.5); CARBON DIOXIDE 29 mmol/L (22-29); CHLORIDE 109 mmol/L (98-107); CHOL/HDL RATIO 2.6 (3.9-5.7); CHOLESTEROL 124 mg/dL (131-200); CREATININE 0.75 mg/dL (0.60-1.30); FREE T4 (FREE THYROXINE) 0.74 ng/dL (0.76-1.46); GLOMERULAR FILTR. RATE CALC > 60 mL/min (>60); GLUCOSE,RANDOM 82 mg/dL (70-110); HDL CHOLESTEROL 47 mg/dL (40-60); LDL CHOL (CALC.) 57 mg/dL (0-130); POTASSIUM 3.6 mmol/L (3.5-5.1); SODIUM SERUM 144 mmol/L (136-145); THYROID STIMULATING HORMONE 2.42 uIU/mL (0.36-3.74); TOTAL PROTEIN, SERUM 6.3 g/dL (6.4-8.2); TRIGLYCERIDES 100 mg/dL (15-150); UREA NITROGEN, BLOOD 17 mg/dL (7-18); VALPROIC ACID 4 mcg/mL (50-100)
[2019-11-16] MEDS: AmLODIPine BESYLATE 5 MG TABLET PO SCH (09:17)
[2019-11-16] MEDS: QUEtiapine FUMARATE 100 MG TABLET PO SCH (10:43)
[2019-11-16] MEDS: DIVALPROEX SODIUM 500 MG ER TABLET PO SCH (10:43)
[2019-11-16] MEDS: SENNA/DOCUSATE SODIUM 8.6-50 MG TABLET PO SCH (12:23)
[2019-11-16 16:00] VITALS: BP 127/73
[2019-11-16] MEDS: GEMFIBROZIL 600 MG TABLET PO SCH (16:42)
[2019-11-16] MEDS: QUEtiapine FUMARATE 300 MG TABLET PO SCH (20:29)
[2019-11-17 03:21] VITALS: BP 117/79
[2019-11-17] MEDS: GEMFIBROZIL 600 MG TABLET PO SCH ×2 (06:52→16:47)
[2019-11-17 08:23] VITALS: BP 110/83
[2019-11-17] MEDS: DIVALPROEX SODIUM 500 MG ER TABLET PO SCH (08:59)
[2019-11-17] MEDS: QUEtiapine FUMARATE 100 MG TABLET PO SCH (08:59)
[2019-11-17] MEDS: SENNA/DOCUSATE SODIUM 8.6-50 MG TABLET PO SCH (08:59)
[2019-11-17] MEDS: AmLODIPine BESYLATE 5 MG TABLET PO SCH (09:00)
[2019-11-17 16:15] VITALS: BP 107/70
[2019-11-17] MEDS: QUEtiapine FUMARATE 300 MG TABLET PO SCH (20:13)
[2019-11-18 01:03] VITALS: BP 106/68
[2019-11-18] MEDS: GEMFIBROZIL 600 MG TABLET PO SCH ×2 (06:40→16:08)
[2019-11-18] MEDS: QUEtiapine FUMARATE 100 MG TABLET PO SCH (08:41)
[2019-11-18] MEDS: SENNA/DOCUSATE SODIUM 8.6-50 MG TABLET PO SCH (08:41)
[2019-11-18] MEDS: DIVALPROEX SODIUM 500 MG ER TABLET PO SCH (08:41)
[2019-11-18] MEDS: AmLODIPine BESYLATE 5 MG TABLET PO SCH (08:45)
[2019-11-18 09:09] LABS: AMPHET/METH SCREEN,URINE NEGATIVE (NEGATIVE); BARBITURATE SCREEN, URINE NEGATIVE (NEGATIVE); BENZODIAZEPINES SCREEN,URINE NEGATIVE (NEGATIVE); CANNABINOID SCREEN,URINE NEGATIVE (NEGATIVE); COCAINE SCREEN,URINE NEGATIVE (NEGATIVE); METHADONE SCREEN, URINE NEGATIVE (NEGATIVE); OPIATE SCREEN,URINE NEGATIVE (NEGATIVE)
[2019-11-18 09:19] LABS: APPEARANCE,URINE CLEAR (CLEAR); BILIRUBIN,URINE NEGATIVE (NEGATIVE); GLUCOSE, URINE (UA) NEGATIVE (NEGATIVE); KETONES,URINE NEGATIVE (NEGATIVE); LEUKOCYTE ESTERASE ,URINE NEGATIVE (NEGATIVE); NITRATE,URINE NEGATIVE (NEGATIVE); OCCULT BLOOD,URINE NEGATIVE (NEGATIVE); PH,URINE 5.5 (5.0-8.0); PROTEIN,URINE NEGATIVE (NEGATIVE); UROBILINOGEN,URINE 0.2 mg/dL (<=1.0)
[2019-11-18 09:38] LABS: PHENCYCLIDINE SCREEN,URINE NEGATIVE (NEGATIVE)
[2019-11-18 09:45] VITALS: BP 97/50
[2019-11-18 16:04] VITALS: BP 112/68
[2019-11-18] MEDS: QUEtiapine FUMARATE 300 MG TABLET PO SCH (20:10)
[2019-11-19 02:21] VITALS: BP 100/60
[2019-11-19] MEDS: GEMFIBROZIL 600 MG TABLET PO SCH ×2 (06:53→16:35)
[2019-11-19] MEDS: SENNA/DOCUSATE SODIUM 8.6-50 MG TABLET PO SCH (08:24)
[2019-11-19] MEDS: AmLODIPine BESYLATE 5 MG TABLET PO SCH (08:24)
[2019-11-19] MEDS: QUEtiapine FUMARATE 100 MG TABLET PO SCH (08:24)
[2019-11-19] MEDS: DIVALPROEX SODIUM 500 MG ER TABLET PO SCH (08:25)
[2019-11-19 09:21] VITALS: BP 114/64
[2019-11-19 16:06] VITALS: BP_SYST 116; BP_SYST 119; BP_DIAS 62
[2019-11-19] MEDS: QUEtiapine FUMARATE 300 MG TABLET PO SCH (20:00)
[2019-11-20 01:04] VITALS: BP 114/64
[2019-11-20] MEDS: GEMFIBROZIL 600 MG TABLET PO SCH ×2 (06:30→16:17)
[2019-11-20 08:41] VITALS: BP 119/71
[2019-11-20] MEDS: QUEtiapine FUMARATE 100 MG TABLET PO SCH (08:46)
[2019-11-20] MEDS: AmLODIPine BESYLATE 5 MG TABLET PO SCH (08:46)
[2019-11-20] MEDS: DIVALPROEX SODIUM 500 MG ER TABLET PO SCH (08:46)
[2019-11-20] MEDS: SENNA/DOCUSATE SODIUM 8.6-50 MG TABLET PO SCH (08:46)
[2019-11-20 16:08] VITALS: BP 112/77
[2019-11-20] MEDS ORDERED: QUET300T2 PO (16:09)
[2019-11-20] MEDS ORDERED: QUET100T PO (16:10)
== END 2019-11-20 17:29 | disposition home or self-care (01) | DRG 750 ==
LOC: B2S 20:58
PROVIDERS: ADMIT Psychiatry & Neurology Psychiatry; ATTEND Psychiatry & Neurology Psychiatry
PROC: 3E0234Z Introduction of Serum, Toxoid and Vaccine into Muscle, Percutaneous Approach (ICD-10-PCS; principal; 2019-11-15)
DX: F20.9 Schizophrenia, unspecified (principal); R45.851 Suicidal ideations; Z91.19 Patient's noncompliance with other medical treatment and regimen; F17.200 Nicotine dependence, unspecified, uncomplicated; F41.9 Anxiety disorder, unspecified; G47.00 Insomnia, unspecified; K59.00 Constipation, unspecified; Z23 Encounter for immunization; Z71.6 Tobacco abuse counseling
CPT/HCPCS: 80307; 83036; 84439; 84443; 86592; 90732

== ENCOUNTER 2019-11-15 23:58 | Emergency (ER) | payer MEDICAID ==
[~2019-11-15] VITALS: Ht 167.6 cm; Wt 63.6 kg
[~2019-11-15 23:58] MED LIST changes: +AMLO-257 PO; -AMLO5TAB9 PO; +DIVA-80 PO; -DIVA500T52 PO
[2019-11-16 01:31] LABS: BASOPHILS % (AUTO) 0.8 % (0.0-2.0); EOSINOPHILS % (AUTO) 5.9 % (1.0-6.0); HEMOGLOBIN 12.1 g/dL (12.0-16.0); LYMPHOCYTES # (AUTO) 1.8 K/uL (1.0-4.8); LYMPHOCYTES % (AUTO) 29.6 % (22.0-44.0); MEAN CORPUSCULAR HEMOGLOBIN 32.4 pg (26.0-34.0); MEAN CORPUSCULAR HGB CONC 34.5 G/dL (31.0-37.0); MEAN CORPUSCULAR VOLUME 94 fL (80-100); MONOCYTES # (AUTO) 0.9 K/uL (0.1-1.0); MONOCYTES % (AUTO) 15.5 % (2.0-9.0); NEUTROPHILS # (AUTO) 2.9 K/uL (1.8-7.7); NEUTROPHILS % (AUTO) 48.2 % (40.0-70.0); PLATELET COUNT (AUTO) 351 K/uL (150-450); RED BLOOD CELL COUNT(AUTO) 3.74 MIL/uL (4.00-5.20); RED CELL DISTRIBUTION WIDTH 14.2 % (11.5-14.5)
[2019-11-16 01:38] LABS: ANION GAP 7 mmol/L (8-16); CALCIUM, TOTAL 9.1 mg/dL (8.8-10.5); CARBON DIOXIDE 29 mmol/L (22-29); CHLORIDE 109 mmol/L (98-107); CREATININE 0.69 mg/dL (0.60-1.30); GLOMERULAR FILTR. RATE CALC > 60 mL/min (>60); GLUCOSE,RANDOM 105 mg/dL (70-110); POTASSIUM 3.8 mmol/L (3.5-5.1); SODIUM SERUM 145 mmol/L (136-145); UREA NITROGEN, BLOOD 18 mg/dL (7-18)
[2019-11-16 01:44] LABS: ALANINE AMINOTRANSFERASE 18 U/L (12-78); ALBUMIN 3.3 g/dL (3.4-5.0); ALKALINE PHOSPHATASE 66 U/L (46-116); ASPARTATE AMINOTRANSFERASE 10 U/L (15-37); BILIRUBIN,TOTAL 0.2 mg/dL (0.1-1.0); TOTAL PROTEIN, SERUM 6.5 g/dL (6.4-8.2)
[2019-11-16 01:48] VITALS: BP 151/83
== END 2019-11-16 02:51 | disposition home or self-care (01) ==
LOC: EMS 23:58
DX: R45.851 Suicidal ideations (principal); F17.210 Nicotine dependence, cigarettes, uncomplicated; F32.9 Major depressive disorder, single episode, unspecified; F25.9 Schizoaffective disorder, unspecified; Z79.899 Other long term (current) drug therapy
CPT/HCPCS: 36415; 71045; 80053; 85025; 99285; 99406; G0480

== ENCOUNTER 2019-12-01 07:02 | Emergency (ER) | payer MEDICAID ==
[~2019-12-01] VITALS: Ht 167.6 cm; Wt 59.1 kg
[~2019-12-01 07:02] MED LIST changes: -AMLO-257 PO; +AMLO5TAB9 PO; -DOCU-119 PO; +QUET100T PO; -QUET200T PO; +QUET300T2 PO
[2019-12-01 07:09] VITALS: BP 114/78
== END 2019-12-01 07:20 | disposition left against medical advice (07) ==
LOC: EMS 07:02
DX: M79.671 Pain in right foot (principal); M79.672 Pain in left foot; Z53.21 Procedure and treatment not carried out due to patient leaving prior to being seen by health care provider

== ENCOUNTER 2019-12-04 20:45 | Emergency (ER) | payer MEDICAID ==
[~2019-12-04] VITALS: Ht 165.1 cm; Wt 68.2 kg
[2019-12-04] MEDS ORDERED: CITA10TA99 PO (20:54)
[2019-12-04] MEDS ORDERED: DOCU-275 PO (20:54)
[2019-12-04] MEDS ORDERED: BACITRACIN 0.9 GM PACKET OINTMENT TP ONE (23:45)
[2019-12-04] MEDS ORDERED: ACETAMINOPHEN 500 MG TABLET PO ONE (23:45)
[2019-12-05 00:52] VITALS: BP 128/84
== END 2019-12-05 01:00 | disposition home or self-care (01) ==
LOC: EMS 20:45
DX: S90.821A Blister (nonthermal), right foot, initial encounter (principal); L84 Corns and callosities; F20.0 Paranoid schizophrenia; F17.210 Nicotine dependence, cigarettes, uncomplicated; F32.9 Major depressive disorder, single episode, unspecified; F20.9 Schizophrenia, unspecified; X58.XXXA Exposure to other specified factors, initial encounter; Y93.89 Activity, other specified; Y92.89 Other specified places as the place of occurrence of the external cause; Y99.8 Other external cause status
CPT/HCPCS: 99406

== ENCOUNTER 2019-12-08 12:27 | Emergency (ER) | payer MEDICAID ==
[~2019-12-08 12:27] MED LIST changes: +CITA10TA99 PO; +DOCU-275 PO
== END 2019-12-08 12:42 | disposition left against medical advice (07) ==
LOC: EMS 12:29
DX: M79.671 Pain in right foot (principal); M79.672 Pain in left foot; Z53.21 Procedure and treatment not carried out due to patient leaving prior to being seen by health care provider

== ENCOUNTER 2019-12-23 10:01 | Inpatient (IN) | payer MEDICAID ==
[~2019-12-23] VITALS: Ht 165.1 cm; Wt 62.4 kg
[~2019-12-23 10:01] MED LIST changes: +AMLO-257 PO; -AMLO5TAB9 PO
[2019-12-23 10:40] LABS: BASOPHILS % (AUTO) 0.8 % (0.0-2.0); EOSINOPHILS % (AUTO) 2.8 % (1.0-6.0); HEMOGLOBIN 13.7 g/dL (12.0-16.0); LYMPHOCYTES # (AUTO) 1.2 K/uL (1.0-4.8); LYMPHOCYTES % (AUTO) 20.3 % (22.0-44.0); MEAN CORPUSCULAR HGB CONC 34.2 G/dL (31.0-37.0); MEAN CORPUSCULAR VOLUME 94 fL (80-100); MONOCYTES # (AUTO) 0.5 K/uL (0.1-1.0); MONOCYTES % (AUTO) 8.4 % (2.0-9.0); NEUTROPHILS % (AUTO) 67.7 % (40.0-70.0); PLATELET COUNT (AUTO) 406 K/uL (150-450); RED BLOOD CELL COUNT(AUTO) 4.27 MIL/uL (4.00-5.20); RED CELL DISTRIBUTION WIDTH 13.6 % (11.5-14.5)
[2019-12-23 10:56] LABS: ANION GAP 8 mmol/L (8-16); CALCIUM, TOTAL 9.5 mg/dL (8.8-10.5); CARBON DIOXIDE 27 mmol/L (22-29); CHLORIDE 105 mmol/L (98-107); CREATININE 0.78 mg/dL (0.60-1.30); GLOMERULAR FILTR. RATE CALC > 60 mL/min (>60); GLUCOSE,RANDOM 96 mg/dL (70-110); POTASSIUM 3.8 mmol/L (3.5-5.1); SODIUM SERUM 140 mmol/L (136-145); UREA NITROGEN, BLOOD 23 mg/dL (7-18)
[2019-12-23 11:00] LABS: ALANINE AMINOTRANSFERASE 27 U/L (12-78); ALBUMIN 4.1 g/dL (3.4-5.0); ALKALINE PHOSPHATASE 88 U/L (46-116); ASPARTATE AMINOTRANSFERASE 20 U/L (15-37); BILIRUBIN,TOTAL 0.4 mg/dL (0.1-1.0); TOTAL PROTEIN, SERUM 7.4 g/dL (6.4-8.2)
[2019-12-23] MEDS ORDERED: MIDAZOLAM HCL 2 MG/2 ML VIAL IM ONE (11:45)
[2019-12-23 13:33] VITALS: BP 145/81
[2019-12-23 13:46] VITALS: BP 145/81
[2019-12-24] MEDS ORDERED: MAG HYDROX/AL HYDROX/SIMETH ES 30 ML SUSPENSION UDCUP PO PRN (09:00)
[2019-12-24] MEDS ORDERED: NICOTINE 14 MG/24 HOUR PATCH TD PRN (09:00)
[2019-12-24] MEDS ORDERED: PETROLATUM,WHITE 28 GM JELLY TP PRN (09:00)
[2019-12-24] MEDS ORDERED: MAGNESIUM HYDROXIDE SUSPENSION 30 ML UDCUP PO PRN (09:00)
[2019-12-24] MEDS ORDERED: ACETAMINOPHEN 325 MG TABLET PO PRN (09:00)
[2019-12-24] MEDS ORDERED: LOPERAMIDE HCL 2 MG CAPSULE PO PRN (09:00)
[2019-12-24] MEDS ORDERED: CloNIDine HCL 0.1 MG TABLET PO PRN (09:00)
[2019-12-24] MEDS ORDERED: ALBUTEROL SULFATE HFA 90 MCG/PUFF 8 GM INHALER IH PRN (09:00)
[2019-12-24] MEDS ORDERED: ONDANSETRON HCL 4 MG TABLET PO PRN (09:00)
[2019-12-24] MEDS ORDERED: DOCUSATE SODIUM 100 MG CAPSULE PO PRN (09:00)
[2019-12-24] MEDS ORDERED: GuaiFENesin/D-METHORPHAN [SUGAR-FREE] 200-20MG/10 ML SYRUP UDCUP PO PRN (09:00)
[2019-12-24] MEDS ORDERED: IBUPROFEN 400 MG TABLET PO PRN (09:00)
[2019-12-24 09:32] VITALS: BP 112/63
[2019-12-24] MEDS: HALOPERIDOL 5 MG TABLET PO PRN (10:59)
[2019-12-24] MEDS: LORazepam 2 MG TABLET PO PRN (10:59)
[2019-12-24] MEDS: OLANZapine 5 MG TABLET PO SCH (16:21)
[2019-12-24 16:54] VITALS: BP 109/71
[2019-12-25] MEDS: OLANZapine 5 MG TABLET PO SCH ×2 (08:41→15:58)
[2019-12-25] MEDS: LORazepam 2 MG TABLET PO PRN (15:58)
[2019-12-25] MEDS: HALOPERIDOL 5 MG TABLET PO PRN (15:58)
[2019-12-26] MEDS: OLANZapine 5 MG TABLET PO SCH ×2 (09:44→17:34)
[2019-12-26] MEDS: LORazepam 2 MG TABLET PO PRN (15:42)
[2019-12-26] MEDS: HALOPERIDOL 5 MG TABLET PO PRN (15:42)
[2019-12-27] MEDS: HALOPERIDOL 5 MG TABLET PO PRN ×2 (08:20→15:34)
[2019-12-27] MEDS: OLANZapine 5 MG TABLET PO SCH ×2 (08:20→16:26)
[2019-12-27] MEDS: LORazepam 2 MG TABLET PO PRN ×2 (08:20→15:34)
[2019-12-28] MEDS: OLANZapine 5 MG TABLET PO SCH ×2 (09:03→16:47)
[2019-12-28 16:54] VITALS: BP 105/62
[2019-12-28] MEDS: ZOLPIDEM TARTRATE 10 MG TABLET PO PRN (21:06)
[2019-12-29 00:22] VITALS: BP 130/70
[2019-12-29 09:04] VITALS: BP 160/90
[2019-12-29] MEDS: OLANZapine 5 MG TABLET PO SCH (09:18)
[2019-12-29] MEDS: HALOPERIDOL 5 MG TABLET PO PRN ×2 (09:19→16:21)
[2019-12-29] MEDS: OLANZapine 7.5 MG TABLET PO SCH (16:21)
[2019-12-29] MEDS: GABAPENTIN 300 MG CAPSULE PO SCH (16:21)
[2019-12-29 20:05] VITALS: BP 111/65
[2019-12-29 21:13] VITALS: BP 111/65
[2019-12-30] MEDS: GABAPENTIN 300 MG CAPSULE PO SCH ×2 (08:53→16:02)
[2019-12-30] MEDS: OLANZapine 7.5 MG TABLET PO SCH ×2 (08:53→16:02)
[2019-12-30] MEDS: HALOPERIDOL 5 MG TABLET PO PRN (16:02)
[2019-12-30 16:39] VITALS: BP 114/63
[2019-12-30] MEDS: LORazepam 2 MG TABLET PO PRN (19:59)
[2019-12-31 08:08] VITALS: BP 118/67
[2019-12-31] MEDS: OLANZapine 7.5 MG TABLET PO SCH ×2 (08:24→16:15)
[2019-12-31] MEDS: GABAPENTIN 300 MG CAPSULE PO SCH ×2 (08:24→16:15)
[2019-12-31] MEDS: HALOPERIDOL 5 MG TABLET PO PRN ×2 (15:29→20:31)
[2019-12-31] MEDS: LORazepam 2 MG TABLET PO PRN (15:29)
[2019-12-31 16:05] VITALS: BP 113/75
[2020-01-01] MEDS: ZOLPIDEM TARTRATE 10 MG TABLET PO PRN (00:15)
[2020-01-01] MEDS: GABAPENTIN 300 MG CAPSULE PO SCH (08:40)
[2020-01-01] MEDS: HALOPERIDOL 5 MG TABLET PO PRN (08:40)
[2020-01-01] MEDS: OLANZapine 7.5 MG TABLET PO SCH (08:40)
[2020-01-01] MEDS: LORazepam 2 MG TABLET PO PRN (08:40)
[2020-01-01] MEDS ORDERED: OLAN7.5T2 PO (11:16)
[2020-01-01] MEDS ORDERED: GABA-1181 PO (11:17)
== END 2020-01-01 14:15 | disposition home or self-care (01) | DRG 885 ==
LOC: EMS 10:04 → 3EI 10:52 → UNDOADMIN 12:02 → 3EI 12-26 14:14 → 3EC 12-26 15:53
PROVIDERS: ADMIT Psychiatry & Neurology Psychiatry; ATTEND Psychiatry & Neurology Psychiatry
DX: F25.9 Schizoaffective disorder, unspecified (principal); I16.1 Hypertensive emergency; R45.851 Suicidal ideations; I10 Essential (primary) hypertension; J44.9 Chronic obstructive pulmonary disease, unspecified; K59.00 Constipation, unspecified; F41.9 Anxiety disorder, unspecified; G47.00 Insomnia, unspecified; K21.9 Gastro-esophageal reflux disease without esophagitis; Z59.0 Homelessness; Z87.891 Personal history of nicotine dependence
CPT/HCPCS: G0480

== ENCOUNTER 2020-02-07 17:54 | Emergency (ER) | payer MEDICAID ==
[~2020-02-07] VITALS: Ht 167.6 cm; Wt 75.0 kg
[~2020-02-07 17:54] MED LIST changes: -AMLO-257 PO; -CITA10TA99 PO; -DIVA-80 PO; -DOCU-275 PO; +GABA-1181 PO; -GEMF600T5 PO; +OLAN7.5T2 PO; -QUET100T PO; -QUET300T2 PO; -SENN-237 PO
[2020-02-07 18:01] VITALS: BP 131/89
== END 2020-02-07 19:32 | disposition left against medical advice (07) ==
LOC: EMS 17:54
DX: M79.673 Pain in unspecified foot (principal); Z53.21 Procedure and treatment not carried out due to patient leaving prior to being seen by health care provider

== ENCOUNTER 2020-02-27 16:20 | Inpatient (IN) | payer MEDICAID ==
[~2020-02-27] VITALS: Ht 167.6 cm; Wt 64.5 kg
[2020-02-27 23:18] LABS: COVID AG,FIA SOURCE NASOPHARYNGEAL
[2020-02-28] MEDS ORDERED: LOPERAMIDE HCL 2 MG CAPSULE PO PRN (07:30)
[2020-02-28] MEDS ORDERED: CloNIDine HCL 0.1 MG TABLET PO PRN (07:30)
[2020-02-28] MEDS ORDERED: MAG HYDROX/AL HYDROX/SIMETH ES 30 ML SUSPENSION UDCUP PO PRN (07:30)
[2020-02-28] MEDS ORDERED: MAGNESIUM HYDROXIDE SUSPENSION 30 ML UDCUP PO PRN (07:30)
[2020-02-28] MEDS ORDERED: ALBUTEROL SULFATE HFA 90 MCG/PUFF 8 GM INHALER IH PRN (07:30)
[2020-02-28] MEDS ORDERED: NICOTINE 14 MG/24 HOUR PATCH TD PRN (07:30)
[2020-02-28] MEDS ORDERED: DOCUSATE SODIUM 100 MG CAPSULE PO PRN (07:30)
[2020-02-28] MEDS ORDERED: GuaiFENesin/D-METHORPHAN [SUGAR-FREE] 200-20MG/10 ML SYRUP UDCUP PO PRN (07:30)
[2020-02-28] MEDS ORDERED: PETROLATUM,WHITE 28 GM JELLY TP PRN (07:30)
[2020-02-28] MEDS: HALOPERIDOL 5 MG TABLET PO PRN (08:11)
[2020-02-28] MEDS: LORazepam 2 MG TABLET PO PRN (08:11)
[2020-02-28 11:05] VITALS: BP 116/60
[2020-02-28 16:34] VITALS: BP 102/68
[2020-02-28] MEDS: GABAPENTIN 300 MG CAPSULE PO SCH (18:14)
[2020-02-28] MEDS: OLANZapine 7.5 MG TABLET PO SCH (18:14)
[2020-02-29 00:22] VITALS: BP 114/62
[2020-02-29] MEDS ORDERED: PNEUMOCOCCAL VACCINE POLYVALENT 0.5 ML VIAL [PPSV23] IM ONE (06:00)
[2020-02-29 07:56] LABS: CHOL/HDL RATIO 2.8 (3.9-5.7); FREE T4 (FREE THYROXINE) 0.89 ng/dL (0.76-1.46); THYROID STIMULATING HORMONE 1.19 uIU/mL (0.36-3.74)
[2020-02-29 08:01] VITALS: BP 118/74
[2020-02-29] MEDS: ACETAMINOPHEN 325 MG TABLET PO PRN (08:01)
[2020-02-29] MEDS: GABAPENTIN 300 MG CAPSULE PO SCH ×2 (08:01→17:01)
[2020-02-29] MEDS: OLANZapine 7.5 MG TABLET PO SCH ×2 (08:01→17:01)
[2020-02-29 08:32] VITALS: BP 118/74
[2020-02-29] MEDS: LORazepam 2 MG TABLET PO PRN (09:36)
[2020-02-29 16:25] VITALS: BP 108/55
[2020-02-29] MEDS: ZOLPIDEM TARTRATE 10 MG TABLET PO PRN (20:39)
[2020-02-29] MEDS: IBUPROFEN 400 MG TABLET PO PRN (20:52)
[2020-03-01 00:47] VITALS: BP 111/76
[2020-03-01] MEDS: HALOPERIDOL 5 MG TABLET PO PRN (06:37)
[2020-03-01] MEDS: GABAPENTIN 300 MG CAPSULE PO SCH ×2 (08:02→16:37)
[2020-03-01] MEDS: OLANZapine 7.5 MG TABLET PO SCH ×2 (08:02→16:37)
[2020-03-01 08:40] VITALS: BP 116/70
[2020-03-01 09:41] VITALS: BP 121/74
[2020-03-01] MEDS: ACETAMINOPHEN 325 MG TABLET PO PRN (09:41)
[2020-03-01] MEDS: LORazepam 2 MG TABLET PO PRN (09:41)
[2020-03-01 16:33] VITALS: BP 114/79
[2020-03-01] MEDS: IBUPROFEN 400 MG TABLET PO PRN (17:38)
[2020-03-01] MEDS: ZOLPIDEM TARTRATE 10 MG TABLET PO PRN (21:40)
[2020-03-02 00:41] VITALS: BP 115/76
[2020-03-02] MEDS: IBUPROFEN 400 MG TABLET PO PRN (03:39)
[2020-03-02] MEDS: OLANZapine 7.5 MG TABLET PO SCH ×2 (08:16→16:17)
[2020-03-02] MEDS: GABAPENTIN 300 MG CAPSULE PO SCH ×2 (08:16→16:17)
[2020-03-02 09:26] VITALS: BP 127/67
[2020-03-02 16:09] VITALS: BP 132/68
[2020-03-02] MEDS: LORazepam 2 MG TABLET PO PRN (19:59)
[2020-03-03 05:22] VITALS: BP 125/81
[2020-03-03] MEDS: OLANZapine 7.5 MG TABLET PO SCH ×2 (08:02→16:21)
[2020-03-03] MEDS: GABAPENTIN 300 MG CAPSULE PO SCH ×2 (08:02→16:21)
[2020-03-03] MEDS: LORazepam 2 MG TABLET PO PRN (13:13)
[2020-03-03 16:09] VITALS: BP 127/79
[2020-03-03] MEDS: ZOLPIDEM TARTRATE 10 MG TABLET PO PRN (23:41)
[2020-03-04] VITALS: BP 143/88
[2020-03-04] MEDS: OLANZapine 7.5 MG TABLET PO SCH ×2 (08:11→19:51)
[2020-03-04] MEDS: GABAPENTIN 300 MG CAPSULE PO SCH ×2 (08:11→19:50)
[2020-03-04] MEDS: LORazepam 2 MG TABLET PO PRN (08:12)
[2020-03-04] MEDS: IBUPROFEN 400 MG TABLET PO PRN (15:36)
[2020-03-04] MEDS: ZOLPIDEM TARTRATE 10 MG TABLET PO PRN (20:30)
[2020-03-05 00:31] VITALS: BP 130/66
[2020-03-05] MEDS: GABAPENTIN 300 MG CAPSULE PO SCH ×2 (08:02→16:21)
[2020-03-05] MEDS: IBUPROFEN 400 MG TABLET PO PRN (08:03)
[2020-03-05] MEDS: LORazepam 2 MG TABLET PO PRN ×2 (08:03→20:09)
[2020-03-05] MEDS: OLANZapine 7.5 MG TABLET PO SCH ×2 (08:03→16:21)
[2020-03-05 08:12] VITALS: BP 130/65
[2020-03-05] MEDS: HALOPERIDOL 5 MG TABLET PO PRN (10:07)
[2020-03-06 00:06] VITALS: BP 132/69
[2020-03-06] MEDS: OLANZapine 7.5 MG TABLET PO SCH ×2 (08:13→16:12)
[2020-03-06] MEDS: LORazepam 2 MG TABLET PO PRN ×2 (08:14→21:56)
[2020-03-06] MEDS: GABAPENTIN 300 MG CAPSULE PO SCH ×2 (08:14→16:12)
[2020-03-06 08:16] VITALS: BP 124/76
[2020-03-06 08:17] LABS: APPEARANCE,URINE CLEAR (CLEAR); BILIRUBIN,URINE NEGATIVE (NEGATIVE); GLUCOSE, URINE (UA) NEGATIVE (NEGATIVE); KETONES,URINE NEGATIVE (NEGATIVE); LEUKOCYTE ESTERASE ,URINE NEGATIVE (NEGATIVE); NITRATE,URINE NEGATIVE (NEGATIVE); OCCULT BLOOD,URINE NEGATIVE (NEGATIVE); PH,URINE 5.5 (5.0-8.0); PROTEIN,URINE NEGATIVE (NEGATIVE); UROBILINOGEN,URINE 0.2 mg/dL (<=1.0)
[2020-03-06 08:22] LABS: AMPHET/METH SCREEN,URINE NEGATIVE (NEGATIVE); BARBITURATE SCREEN, URINE NEGATIVE (NEGATIVE); BENZODIAZEPINES SCREEN,URINE NEGATIVE (NEGATIVE); CANNABINOID SCREEN,URINE NEGATIVE (NEGATIVE); COCAINE SCREEN,URINE NEGATIVE (NEGATIVE); METHADONE SCREEN, URINE NEGATIVE (NEGATIVE); OPIATE SCREEN,URINE NEGATIVE (NEGATIVE); PHENCYCLIDINE SCREEN,URINE NEGATIVE (NEGATIVE)
[2020-03-06] MEDS: IBUPROFEN 400 MG TABLET PO PRN (08:24)
[2020-03-07 00:46] VITALS: BP 137/79
[2020-03-07] MEDS: ZOLPIDEM TARTRATE 10 MG TABLET PO PRN (00:55)
[2020-03-07] MEDS: GABAPENTIN 300 MG CAPSULE PO SCH ×2 (08:42→17:07)
[2020-03-07] MEDS: OLANZapine 7.5 MG TABLET PO SCH ×2 (08:42→17:08)
[2020-03-07 08:45] VITALS: BP 142/89
[2020-03-07] MEDS: LORazepam 2 MG TABLET PO PRN ×2 (11:16→17:07)
[2020-03-07 11:17] VITALS: BP 121/83
[2020-03-07] MEDS: IBUPROFEN 400 MG TABLET PO PRN (11:17)
[2020-03-07 16:12] VITALS: BP 129/83
[2020-03-08 01:13] VITALS: BP 128/75
[2020-03-08] MEDS: GABAPENTIN 300 MG CAPSULE PO SCH ×2 (08:09→16:09)
[2020-03-08] MEDS: OLANZapine 7.5 MG TABLET PO SCH ×2 (08:09→16:09)
[2020-03-08] MEDS: LORazepam 2 MG TABLET PO PRN ×2 (08:09→19:54)
[2020-03-08 09:05] VITALS: BP 116/78
[2020-03-08 16:08] VITALS: BP 134/78
[2020-03-09 00:23] VITALS: BP 132/71
[2020-03-09] MEDS: HALOPERIDOL 5 MG TABLET PO PRN (03:41)
[2020-03-09] MEDS: GABAPENTIN 300 MG CAPSULE PO SCH ×2 (08:16→16:01)
[2020-03-09] MEDS: LORazepam 2 MG TABLET PO PRN ×2 (08:17→20:03)
[2020-03-09] MEDS: OLANZapine 7.5 MG TABLET PO SCH ×2 (08:17→16:01)
[2020-03-09] MEDS: IBUPROFEN 400 MG TABLET PO PRN (08:17)
[2020-03-09 16:16] VITALS: BP 129/69
[2020-03-10] MEDS: ZOLPIDEM TARTRATE 10 MG TABLET PO PRN (01:29)
[2020-03-10 01:39] VITALS: BP 134/80
[2020-03-10] MEDS: GABAPENTIN 300 MG CAPSULE PO SCH ×2 (08:15→16:14)
[2020-03-10] MEDS: OLANZapine 7.5 MG TABLET PO SCH ×2 (08:15→16:14)
[2020-03-10] MEDS: LORazepam 2 MG TABLET PO PRN (08:15)
[2020-03-10 09:42] VITALS: BP 124/96
[2020-03-10 16:40] VITALS: BP 133/82
[2020-03-11 01:01] VITALS: BP 125/81
[2020-03-11] MEDS: ZOLPIDEM TARTRATE 10 MG TABLET PO PRN (02:54)
[2020-03-11] MEDS: GABAPENTIN 300 MG CAPSULE PO SCH ×2 (08:14→16:52)
[2020-03-11] MEDS: OLANZapine 7.5 MG TABLET PO SCH ×2 (08:14→16:52)
[2020-03-11] MEDS: IBUPROFEN 400 MG TABLET PO PRN (18:45)
[2020-03-11] MEDS: LORazepam 2 MG TABLET PO PRN (20:06)
[2020-03-12 05:25] VITALS: BP 129/71
[2020-03-12] MEDS: OLANZapine 7.5 MG TABLET PO SCH ×2 (08:12→16:09)
[2020-03-12] MEDS: GABAPENTIN 300 MG CAPSULE PO SCH ×2 (08:12→16:09)
[2020-03-12 08:13] VITALS: BP 129/71
[2020-03-12] MEDS: HALOPERIDOL 5 MG TABLET PO PRN (15:34)
[2020-03-12] MEDS: LORazepam 2 MG TABLET PO PRN (15:34)
[2020-03-12] MEDS: IBUPROFEN 400 MG TABLET PO PRN (16:09)
[2020-03-12 16:12] VITALS: BP 123/73
[2020-03-12] MEDS: ZOLPIDEM TARTRATE 10 MG TABLET PO PRN (21:25)
[2020-03-13 00:06] VITALS: BP 108/70
[2020-03-13 06:38] VITALS: BP 122/79
[2020-03-13] MEDS: IBUPROFEN 400 MG TABLET PO PRN (06:40)
[2020-03-13] MEDS: OLANZapine 10 MG TABLET PO SCH ×2 (08:13→16:10)
[2020-03-13] MEDS: GABAPENTIN 300 MG CAPSULE PO SCH ×2 (08:13→16:10)
[2020-03-13] MEDS: LORazepam 2 MG TABLET PO PRN ×2 (08:13→19:52)
[2020-03-13 08:31] VITALS: BP 127/74
[2020-03-13 16:12] VITALS: BP 116/81
[2020-03-14 05:02] VITALS: BP 138/87
[2020-03-14] MEDS: GABAPENTIN 300 MG CAPSULE PO SCH ×2 (08:07→16:00)
[2020-03-14] MEDS: OLANZapine 10 MG TABLET PO SCH ×2 (08:07→16:00)
[2020-03-14] MEDS: LORazepam 2 MG TABLET PO PRN (08:07)
[2020-03-14 08:30] VITALS: BP 90/70
[2020-03-14 09:00] VITALS: BP 128/74
[2020-03-15 00:58] VITALS: BP 132/65
[2020-03-15] MEDS: OLANZapine 10 MG TABLET PO SCH ×2 (08:19→17:20)
[2020-03-15] MEDS: GABAPENTIN 300 MG CAPSULE PO SCH ×2 (08:19→17:20)
[2020-03-15 08:23] VITALS: BP 118/74
[2020-03-15 09:40] VITALS: BP 120/72
[2020-03-15] MEDS: IBUPROFEN 400 MG TABLET PO PRN (09:40)
[2020-03-15] MEDS: HALOPERIDOL 5 MG TABLET PO PRN ×2 (09:40→17:20)
[2020-03-15] MEDS: LORazepam 2 MG TABLET PO PRN ×2 (09:40→17:20)
[2020-03-15] MEDS: ONDANSETRON HCL 4 MG TABLET PO PRN (13:01)
[2020-03-15 17:42] VITALS: BP 119/68
[2020-03-16 02:10] VITALS: BP 136/77
[2020-03-16] MEDS: OLANZapine 10 MG TABLET PO SCH ×2 (08:06→16:08)
[2020-03-16] MEDS: GABAPENTIN 300 MG CAPSULE PO SCH ×2 (08:06→16:08)
[2020-03-16 08:29] VITALS: BP 105/60
[2020-03-16] MEDS: HALOPERIDOL 5 MG TABLET PO PRN (13:40)
[2020-03-16 16:30] VITALS: BP 107/63
[2020-03-16] MEDS: LORazepam 2 MG TABLET PO PRN (19:55)
[2020-03-17 00:05] VITALS: BP 130/85
[2020-03-17 08:59] VITALS: BP 123/79
[2020-03-17] MEDS: OLANZapine 10 MG TABLET PO SCH ×2 (09:22→16:12)
[2020-03-17] MEDS: GABAPENTIN 300 MG CAPSULE PO SCH ×2 (09:22→16:12)
[2020-03-17] MEDS: LORazepam 2 MG TABLET PO PRN (16:12)
[2020-03-17 16:29] VITALS: BP 119/70
[2020-03-18 02:55] VITALS: BP 131/86
[2020-03-18] MEDS: OLANZapine 10 MG TABLET PO SCH ×2 (08:13→19:35)
[2020-03-18] MEDS: GABAPENTIN 300 MG CAPSULE PO SCH ×2 (08:13→19:35)
[2020-03-18] MEDS: LORazepam 2 MG TABLET PO PRN (08:13)
[2020-03-18] MEDS: IBUPROFEN 400 MG TABLET PO PRN (08:43)
[2020-03-18 08:44] VITALS: BP 124/81
[2020-03-18] MEDS ORDERED: TUBERCULIN, PURIFIED PROTEIN DERIVATIVE 5 TU/0.1 ML SYRINGE ID ONE (13:00)
[2020-03-18 16:55] VITALS: BP 103/60
[2020-03-18] MEDS: ZOLPIDEM TARTRATE 10 MG TABLET PO PRN (21:28)
[2020-03-19 01:54] VITALS: BP 125/86
[2020-03-19] MEDS: OLANZapine 10 MG TABLET PO SCH ×2 (08:20→16:16)
[2020-03-19] MEDS: LORazepam 2 MG TABLET PO PRN ×2 (08:20→19:59)
[2020-03-19] MEDS: GABAPENTIN 300 MG CAPSULE PO SCH ×2 (08:20→16:16)
[2020-03-19 08:32] VITALS: BP 125/79
[2020-03-19 16:40] VITALS: BP 125/96
[2020-03-20 02:02] VITALS: BP 119/70
[2020-03-20 08:14] VITALS: BP 120/64
[2020-03-20] MEDS: GABAPENTIN 300 MG CAPSULE PO SCH ×2 (09:00→17:28)
[2020-03-20] MEDS: OLANZapine 10 MG TABLET PO SCH ×2 (09:00→17:28)
[2020-03-20 16:46] VITALS: BP 113/71
[2020-03-20] MEDS: ZOLPIDEM TARTRATE 10 MG TABLET PO PRN (21:47)
[2020-03-21 00:35] VITALS: BP 115/70
[2020-03-21 08:13] VITALS: BP 115/69
[2020-03-21] MEDS: GABAPENTIN 300 MG CAPSULE PO SCH ×2 (09:12→16:48)
[2020-03-21] MEDS: OLANZapine 10 MG TABLET PO SCH ×2 (09:12→16:48)
[2020-03-21] MEDS: ACETAMINOPHEN 325 MG TABLET PO PRN (11:03)
[2020-03-21 16:22] VITALS: BP 106/76
[2020-03-21] MEDS: IBUPROFEN 400 MG TABLET PO PRN (16:48)
[2020-03-22 00:57] VITALS: BP 111/76
[2020-03-22] MEDS: ZOLPIDEM TARTRATE 10 MG TABLET PO PRN (02:09)
[2020-03-22] MEDS: GABAPENTIN 300 MG CAPSULE PO SCH ×2 (08:11→16:02)
[2020-03-22] MEDS: OLANZapine 10 MG TABLET PO SCH ×2 (08:12→16:02)
[2020-03-22 08:47] VITALS: BP 132/60
[2020-03-22] MEDS: ACETAMINOPHEN 325 MG TABLET PO PRN (12:32)
[2020-03-22] MEDS: HALOPERIDOL 5 MG TABLET PO PRN (13:54)
[2020-03-22 16:11] VITALS: BP 131/69
[2020-03-22] MEDS: LORazepam 2 MG TABLET PO PRN (20:11)
[2020-03-23 01:10] VITALS: BP 119/65
[2020-03-23] MEDS: GABAPENTIN 300 MG CAPSULE PO SCH ×2 (08:09→16:42)
[2020-03-23] MEDS: OLANZapine 10 MG TABLET PO SCH ×2 (08:09→16:42)
[2020-03-23] MEDS: LORazepam 2 MG TABLET PO PRN ×2 (08:10→20:12)
[2020-03-23 09:53] VITALS: BP 118/66
[2020-03-23 16:21] VITALS: BP 111/77
[2020-03-24 02:09] VITALS: BP 102/55
[2020-03-24] MEDS: OLANZapine 10 MG TABLET PO SCH ×2 (08:10→16:22)
[2020-03-24] MEDS: GABAPENTIN 300 MG CAPSULE PO SCH ×2 (08:10→16:22)
[2020-03-24] MEDS: LORazepam 2 MG TABLET PO PRN ×2 (08:10→20:02)
[2020-03-24 08:19] VITALS: BP 115/50
[2020-03-24 16:12] VITALS: BP 140/77
[2020-03-25 00:15] VITALS: BP 128/72
[2020-03-25] MEDS: OLANZapine 10 MG TABLET PO SCH ×2 (08:46→16:31)
[2020-03-25] MEDS: GABAPENTIN 300 MG CAPSULE PO SCH ×2 (08:47→16:31)
[2020-03-25] MEDS: ACETAMINOPHEN 325 MG TABLET PO PRN (13:20)
[2020-03-25 16:20] VITALS: BP 124/77
[2020-03-25 20:24] VITALS: BP 110/83
[2020-03-25] MEDS: IBUPROFEN 400 MG TABLET PO PRN (20:24)
[2020-03-26 00:23] VITALS: BP 125/82
[2020-03-26] MEDS: GABAPENTIN 300 MG CAPSULE PO SCH ×2 (08:52→16:32)
[2020-03-26] MEDS: OLANZapine 10 MG TABLET PO SCH ×2 (08:52→16:32)
[2020-03-26 09:03] VITALS: BP 130/78
[2020-03-26] MEDS: IBUPROFEN 400 MG TABLET PO PRN (09:32)
[2020-03-26 16:31] VITALS: BP 127/77
[2020-03-26] MEDS: ACETAMINOPHEN 325 MG TABLET PO PRN (17:13)
[2020-03-26] MEDS: HALOPERIDOL 5 MG TABLET PO PRN (17:13)
[2020-03-27 02:32] VITALS: BP 145/80
[2020-03-27] MEDS: GABAPENTIN 300 MG CAPSULE PO SCH ×2 (08:58→16:08)
[2020-03-27] MEDS: OLANZapine 10 MG TABLET PO SCH ×2 (08:58→16:08)
[2020-03-27 16:28] VITALS: BP 126/60
[2020-03-27] MEDS: ONDANSETRON HCL 4 MG TABLET PO PRN (17:30)
[2020-03-28 05:32] VITALS: BP 122/71
[2020-03-28] MEDS: GABAPENTIN 300 MG CAPSULE PO SCH ×2 (08:05→16:03)
[2020-03-28] MEDS: OLANZapine 10 MG TABLET PO SCH ×2 (08:05→16:03)
[2020-03-28 09:29] VITALS: BP 140/80
[2020-03-28] MEDS: IBUPROFEN 400 MG TABLET PO PRN (13:17)
[2020-03-28 16:41] VITALS: BP 120/72
[2020-03-28] MEDS: HALOPERIDOL 5 MG TABLET PO PRN (20:01)
[2020-03-29 01:10] VITALS: BP 123/76
[2020-03-29 08:08] VITALS: BP 115/69
[2020-03-29] MEDS: GABAPENTIN 300 MG CAPSULE PO SCH ×2 (08:44→16:17)
[2020-03-29] MEDS: OLANZapine 10 MG TABLET PO SCH ×2 (08:44→16:17)
[2020-03-29 16:23] VITALS: BP 110/73
[2020-03-29] MEDS: HALOPERIDOL 5 MG TABLET PO PRN (20:10)
[2020-03-29] MEDS: IBUPROFEN 400 MG TABLET PO PRN (20:10)
[2020-03-30] VITALS: BP 110/68
[2020-03-30] MEDS: GABAPENTIN 300 MG CAPSULE PO SCH ×2 (08:34→16:02)
[2020-03-30] MEDS: OLANZapine 10 MG TABLET PO SCH ×2 (08:34→16:02)
[2020-03-30 16:14] VITALS: BP 130/87
[2020-03-30] MEDS: HALOPERIDOL 5 MG TABLET PO PRN (17:03)
[2020-03-30] MEDS: ONDANSETRON HCL 4 MG TABLET PO PRN (19:15)
[2020-03-31] VITALS: BP 112/68
[2020-03-31 07:54] VITALS: BP 105/71
[2020-03-31 08:32] VITALS: BP 105/71
[2020-03-31] MEDS: GABAPENTIN 300 MG CAPSULE PO SCH ×2 (08:46→16:31)
[2020-03-31] MEDS: OLANZapine 10 MG TABLET PO SCH ×2 (08:46→16:31)
[2020-03-31] MEDS: ACETAMINOPHEN 325 MG TABLET PO PRN (13:42)
[2020-03-31] MEDS: ONDANSETRON HCL 4 MG TABLET PO PRN (15:18)
[2020-03-31 16:52] VITALS: BP 116/64
[2020-03-31] MEDS: HALOPERIDOL 5 MG TABLET PO PRN (21:12)
[2020-04-01 00:16] VITALS: BP 122/79
[2020-04-01] MEDS: OLANZapine 10 MG TABLET PO SCH ×2 (08:09→16:17)
[2020-04-01] MEDS: GABAPENTIN 300 MG CAPSULE PO SCH ×2 (08:09→16:17)
[2020-04-01 08:29] VITALS: BP 107/69
[2020-04-01 16:06] VITALS: BP 129/75
[2020-04-01] MEDS: TraZODone HCL 50 MG TABLET PO SCH (20:07)
[2020-04-02 00:22] VITALS: BP 133/77
[2020-04-02 08:39] VITALS: BP 106/69
[2020-04-02] MEDS: GABAPENTIN 300 MG CAPSULE PO SCH ×2 (09:09→16:03)
[2020-04-02] MEDS: OLANZapine 10 MG TABLET PO SCH ×2 (09:09→16:03)
[2020-04-02 16:07] VITALS: BP 115/74
[2020-04-02] MEDS: TraZODone HCL 50 MG TABLET PO SCH (20:20)
[2020-04-03] VITALS: BP 129/78
[2020-04-03] MEDS: OLANZapine 10 MG TABLET PO SCH ×2 (08:42→16:22)
[2020-04-03] MEDS: GABAPENTIN 300 MG CAPSULE PO SCH ×2 (08:42→16:22)
[2020-04-03 14:37] VITALS: BP 130/74
[2020-04-03 16:32] VITALS: BP 127/68
[2020-04-03] MEDS: TraZODone HCL 50 MG TABLET PO SCH (20:02)
[2020-04-04 02:24] VITALS: BP 133/81
[2020-04-04 08:22] VITALS: BP 103/55
[2020-04-04] MEDS: OLANZapine 10 MG TABLET PO SCH ×2 (08:33→16:02)
[2020-04-04] MEDS: GABAPENTIN 300 MG CAPSULE PO SCH ×2 (08:33→16:02)
[2020-04-04 16:12] VITALS: BP 113/67
[2020-04-04] MEDS: TraZODone HCL 50 MG TABLET PO SCH (20:11)
[2020-04-05] VITALS: BP 114/68
[2020-04-05 08:23] VITALS: BP 110/78
[2020-04-05] MEDS: GABAPENTIN 300 MG CAPSULE PO SCH ×2 (09:00→16:52)
[2020-04-05] MEDS: OLANZapine 10 MG TABLET PO SCH ×2 (09:00→17:00)
[2020-04-05 16:08] VITALS: BP 135/78
[2020-04-05] MEDS: TraZODone HCL 50 MG TABLET PO SCH (21:07)
[2020-04-06 07:09] VITALS: BP 112/83
[2020-04-06] MEDS: OLANZapine 10 MG TABLET PO SCH ×2 (08:34→16:25)
[2020-04-06] MEDS: GABAPENTIN 300 MG CAPSULE PO SCH ×2 (08:34→16:25)
[2020-04-06 16:17] VITALS: BP 113/69
[2020-04-06] MEDS: TraZODone HCL 50 MG TABLET PO SCH (20:15)
[2020-04-07 01:47] VITALS: BP 136/82
[2020-04-07] MEDS: GABAPENTIN 300 MG CAPSULE PO SCH ×2 (08:02→16:06)
[2020-04-07] MEDS: OLANZapine 10 MG TABLET PO SCH ×2 (08:02→16:06)
[2020-04-07 09:12] VITALS: BP 139/78
[2020-04-07 17:31] VITALS: BP 108/74
[2020-04-07] MEDS: TraZODone HCL 50 MG TABLET PO SCH (20:21)
[2020-04-08 09:01] VITALS: BP 137/68
[2020-04-08] MEDS: OLANZapine 10 MG TABLET PO SCH ×2 (09:19→16:04)
[2020-04-08] MEDS: GABAPENTIN 300 MG CAPSULE PO SCH ×2 (09:19→16:04)
[2020-04-08] MEDS: IBUPROFEN 400 MG TABLET PO PRN (16:09)
[2020-04-08 16:24] VITALS: BP 128/70
[2020-04-08] MEDS: TraZODone HCL 50 MG TABLET PO SCH (20:04)
[2020-04-09 01:55] VITALS: BP 127/77
[2020-04-09] MEDS: GABAPENTIN 300 MG CAPSULE PO SCH ×2 (08:14→15:55)
[2020-04-09] MEDS: OLANZapine 10 MG TABLET PO SCH ×2 (08:14→15:55)
[2020-04-09 08:47] VITALS: BP 133/75
[2020-04-09] MEDS: ACETAMINOPHEN 325 MG TABLET PO PRN (09:09)
[2020-04-09 16:09] VITALS: BP 112/66
[2020-04-09] MEDS: IBUPROFEN 400 MG TABLET PO PRN (20:11)
[2020-04-09] MEDS: TraZODone HCL 50 MG TABLET PO SCH (20:11)
[2020-04-10 00:25] VITALS: BP 110/63
[2020-04-10] MEDS: GABAPENTIN 300 MG CAPSULE PO SCH ×2 (08:01→16:10)
[2020-04-10] MEDS: OLANZapine 10 MG TABLET PO SCH ×2 (08:01→16:11)
[2020-04-10 08:20] VITALS: BP 124/79
[2020-04-10 16:31] VITALS: BP 132/71
[2020-04-10] MEDS: TraZODone HCL 50 MG TABLET PO SCH (20:20)
[2020-04-11 03:45] VITALS: BP 122/87
[2020-04-11 08:24] VITALS: BP 111/64
[2020-04-11] MEDS: GABAPENTIN 300 MG CAPSULE PO SCH ×2 (08:39→16:07)
[2020-04-11] MEDS: OLANZapine 10 MG TABLET PO SCH ×2 (08:39→16:07)
[2020-04-11 16:21] VITALS: BP 136/61
[2020-04-11] MEDS: TraZODone HCL 50 MG TABLET PO SCH (20:17)
[2020-04-12] MEDS: GABAPENTIN 300 MG CAPSULE PO SCH ×2 (08:04→16:03)
[2020-04-12] MEDS: OLANZapine 10 MG TABLET PO SCH ×2 (08:05→16:03)
[2020-04-12 09:49] VITALS: BP 122/77
[2020-04-12 16:27] VITALS: BP 123/73
[2020-04-12] MEDS: TraZODone HCL 50 MG TABLET PO SCH (20:28)
[2020-04-13 01:24] VITALS: BP 138/86
[2020-04-13] MEDS: OLANZapine 10 MG TABLET PO SCH ×2 (08:06→16:09)
[2020-04-13] MEDS: GABAPENTIN 300 MG CAPSULE PO SCH ×2 (08:06→16:09)
[2020-04-13 10:26] VITALS: BP 125/76
[2020-04-13 16:24] VITALS: BP 127/75
[2020-04-13] MEDS: TraZODone HCL 50 MG TABLET PO SCH (20:09)
[2020-04-14 00:45] VITALS: BP 144/88
[2020-04-14] MEDS: OLANZapine 10 MG TABLET PO SCH ×2 (08:08→16:31)
[2020-04-14] MEDS: GABAPENTIN 300 MG CAPSULE PO SCH ×2 (08:08→16:31)
[2020-04-14 08:50] VITALS: BP 132/73
[2020-04-14 17:18] VITALS: BP 128/84
[2020-04-14] MEDS: TraZODone HCL 50 MG TABLET PO SCH (20:29)
[2020-04-15 05:05] VITALS: BP 118/75
[2020-04-15] MEDS: GABAPENTIN 300 MG CAPSULE PO SCH ×2 (08:18→16:15)
[2020-04-15] MEDS: OLANZapine 10 MG TABLET PO SCH ×2 (08:18→16:15)
[2020-04-15 09:15] VITALS: BP 132/67
[2020-04-15 17:30] VITALS: BP 130/74
[2020-04-15] MEDS: TraZODone HCL 50 MG TABLET PO SCH (20:23)
[2020-04-16 01:05] VITALS: BP 122/74
[2020-04-16 08:16] VITALS: BP 107/74
[2020-04-16] MEDS: GABAPENTIN 300 MG CAPSULE PO SCH ×2 (08:21→16:15)
[2020-04-16] MEDS: OLANZapine 10 MG TABLET PO SCH ×2 (08:21→16:15)
[2020-04-16 16:16] VITALS: BP 112/74
[2020-04-16] MEDS: TraZODone HCL 50 MG TABLET PO SCH (20:07)
[2020-04-17 01:23] VITALS: BP 101/71
[2020-04-17 08:08] VITALS: BP 108/73
[2020-04-17] MEDS: OLANZapine 10 MG TABLET PO SCH ×2 (08:15→16:05)
[2020-04-17] MEDS: GABAPENTIN 300 MG CAPSULE PO SCH ×2 (08:15→16:05)
[2020-04-17] MEDS: ACETAMINOPHEN 325 MG TABLET PO PRN (16:05)
[2020-04-17 16:06] VITALS: BP 123/79
[2020-04-17] MEDS: TraZODone HCL 50 MG TABLET PO SCH (20:11)
[2020-04-18 00:26] VITALS: BP 122/75
[2020-04-18] MEDS: GABAPENTIN 300 MG CAPSULE PO SCH ×2 (08:10→16:03)
[2020-04-18] MEDS: OLANZapine 10 MG TABLET PO SCH ×2 (08:10→16:03)
[2020-04-18 08:15] VITALS: BP 118/86
[2020-04-18 16:30] VITALS: BP 124/77
[2020-04-18] MEDS: ONDANSETRON HCL 4 MG TABLET PO PRN (18:01)
[2020-04-18] MEDS: TraZODone HCL 50 MG TABLET PO SCH (20:12)
[2020-04-19 06:12] VITALS: BP 126/66
[2020-04-19] MEDS: OLANZapine 10 MG TABLET PO SCH ×2 (08:10→16:22)
[2020-04-19] MEDS: GABAPENTIN 300 MG CAPSULE PO SCH ×2 (08:10→16:22)
[2020-04-19 09:01] VITALS: BP 133/70
[2020-04-19 16:31] VITALS: BP 126/81
[2020-04-19] MEDS: TraZODone HCL 50 MG TABLET PO SCH (20:33)
[2020-04-20] MEDS: OLANZapine 10 MG TABLET PO SCH ×2 (08:06→16:09)
[2020-04-20] MEDS: GABAPENTIN 300 MG CAPSULE PO SCH ×2 (08:06→16:09)
[2020-04-20 08:53] VITALS: BP 126/89
[2020-04-20] MEDS ORDERED: ChlorproMAZINE HCL 50 MG/2 ML AMP IM ONE (12:30)
[2020-04-20] MEDS ORDERED: DiphenhydrAMINE HCL 50 MG/ML VIAL IM ONE (12:30)
[2020-04-20 16:12] VITALS: BP 131/82
[2020-04-20] MEDS: TraZODone HCL 50 MG TABLET PO SCH (20:05)
[2020-04-21 01:15] VITALS: BP 121/89
[2020-04-21] MEDS: GABAPENTIN 300 MG CAPSULE PO SCH ×2 (08:19→16:32)
[2020-04-21] MEDS: OLANZapine 10 MG TABLET PO SCH ×2 (08:19→16:32)
[2020-04-21 08:44] VITALS: BP 106/70
[2020-04-21] MEDS ORDERED: ChlorproMAZINE HCL 50 MG/2 ML AMP IM ONE (13:30)
[2020-04-21] MEDS ORDERED: DiphenhydrAMINE HCL 50 MG/ML VIAL IM ONE (13:30)
[2020-04-21 16:18] VITALS: BP 110/76
[2020-04-21] MEDS: TraZODone HCL 50 MG TABLET PO SCH (20:12)
[2020-04-22 06:49] VITALS: BP 128/71
[2020-04-22 08:38] VITALS: BP 145/85
[2020-04-22] MEDS: OLANZapine 10 MG TABLET PO SCH ×2 (08:47→16:09)
[2020-04-22] MEDS: GABAPENTIN 300 MG CAPSULE PO SCH ×2 (08:47→16:09)
[2020-04-22] MEDS ORDERED: LORazepam 2 MG TABLET PO PRN (13:15)
[2020-04-22] MEDS ORDERED: HALOPERIDOL 5 MG TABLET PO PRN (13:15)
[2020-04-22] MEDS: ACETAMINOPHEN 325 MG TABLET PO PRN (16:09)
[2020-04-22 17:02] VITALS: BP 138/97
[2020-04-22] MEDS: TraZODone HCL 50 MG TABLET PO SCH (19:57)
[2020-04-23 00:25] VITALS: BP 124/75
[2020-04-23] MEDS: OLANZapine 10 MG TABLET PO SCH ×2 (08:00→16:16)
[2020-04-23] MEDS: GABAPENTIN 300 MG CAPSULE PO SCH ×2 (08:00→16:15)
[2020-04-23 08:27] VITALS: BP 116/75
[2020-04-23] MEDS: ONDANSETRON HCL 4 MG TABLET PO PRN (13:18)
[2020-04-23 16:13] VITALS: BP 130/68
[2020-04-23] MEDS: TraZODone HCL 50 MG TABLET PO SCH (20:07)
[2020-04-24 00:39] VITALS: BP 123/67
[2020-04-24] MEDS: OLANZapine 10 MG TABLET PO SCH ×2 (08:12→15:59)
[2020-04-24] MEDS: GABAPENTIN 300 MG CAPSULE PO SCH ×2 (08:12→15:59)
[2020-04-24 08:31] VITALS: BP 127/74
[2020-04-24 16:08] VITALS: BP 133/77
[2020-04-24] MEDS: TraZODone HCL 50 MG TABLET PO SCH (19:48)
[2020-04-25 07:42] LABS: COVID AG,FIA SOURCE NASOPHARYNGEAL
[2020-04-25] MEDS: GABAPENTIN 300 MG CAPSULE PO SCH ×2 (08:06→16:24)
[2020-04-25] MEDS: OLANZapine 10 MG TABLET PO SCH ×2 (08:06→16:24)
[2020-04-25 08:17] VITALS: BP 129/61
[2020-04-25 16:36] VITALS: BP 129/89
[2020-04-25] MEDS: TraZODone HCL 50 MG TABLET PO SCH (20:00)
[2020-04-26 01:01] VITALS: BP 122/79
[2020-04-26] MEDS: OLANZapine 10 MG TABLET PO SCH (08:06)
[2020-04-26] MEDS: GABAPENTIN 300 MG CAPSULE PO SCH (08:06)
[2020-04-26 08:08] VITALS: BP 117/72
[2020-04-26] MEDS ORDERED: GABA-1181 PO (09:46)
[2020-04-26] MEDS ORDERED: TRAZ-252 PO (09:46)
[2020-04-26] MEDS ORDERED: OLAN10TA3 PO (09:46)
== END 2020-04-26 12:00 | disposition home or self-care (01) | DRG 750 ==
LOC: EMS 16:22 → B2S 02-28 09:52
PROVIDERS: ADMIT Psychiatry & Neurology Psychiatry; ATTEND Psychiatry & Neurology Psychiatry
PROC: 3E0234Z Introduction of Serum, Toxoid and Vaccine into Muscle, Percutaneous Approach (ICD-10-PCS; principal; 2020-02-29)
DX: F20.0 Paranoid schizophrenia (principal); K21.9 Gastro-esophageal reflux disease without esophagitis; J44.9 Chronic obstructive pulmonary disease, unspecified; I10 Essential (primary) hypertension; F41.9 Anxiety disorder, unspecified; F19.10 Other psychoactive substance abuse, uncomplicated; G47.00 Insomnia, unspecified; M25.431 Effusion, right wrist; Z23 Encounter for immunization; Z59.0 Homelessness; Z87.891 Personal history of nicotine dependence
CPT/HCPCS: 84439; 84443; 87426; 90732; J1200; J3230; Q0162

== ENCOUNTER 2020-12-15 23:07 | Emergency (ER) | payer MEDICAID ==
[~2020-12-15] VITALS: Ht 167.6 cm; Wt 63.6 kg
[~2020-12-15 23:07] MED LIST changes: +OLAN10TA74 PO; -OLAN7.5T2 PO; +TRAZ-252 PO
[2020-12-16] MEDS ORDERED: ACETAMINOPHEN 325 MG TABLET PO ONE (02:45)
[2020-12-16 03:30] VITALS: BP 117/68
== END 2020-12-16 03:56 | disposition home or self-care (01) ==
LOC: EMS 23:08
DX: S90.111A Contusion of right great toe without damage to nail, initial encounter (principal); F41.9 Anxiety disorder, unspecified; F32.9 Major depressive disorder, single episode, unspecified; F20.9 Schizophrenia, unspecified; K21.9 Gastro-esophageal reflux disease without esophagitis; F17.210 Nicotine dependence, cigarettes, uncomplicated; W18.40XA Slipping, tripping and stumbling without falling, unspecified, initial encounter; Y93.89 Activity, other specified; Y92.89 Other specified places as the place of occurrence of the external cause; Y99.8 Other external cause status
CPT/HCPCS: 99283

== ENCOUNTER 2020-12-18 11:29 | Emergency (ER) | payer MEDICAID ==
[~2020-12-18] VITALS: Ht 167.6 cm; Wt 63.6 kg
[2020-12-18 11:36] VITALS: BP 134/61
== END 2020-12-18 12:04 | disposition left against medical advice (07) ==
LOC: EMS 11:35
DX: M79.672 Pain in left foot (principal); Z53.21 Procedure and treatment not carried out due to patient leaving prior to being seen by health care provider